=== PATIENT | female | born 1960 | race Caucasian/White ===

== ENCOUNTER 2024-12-29 14:17 | Outpatient (CLI) | payer MEDICARE, SELFPAY | END 2024-12-29 14:18 | disposition home or self-care (01) | LOC: AMB 12-30 11:20 | PROVIDERS: PCP Family Medicine; Visit Provider Family Medicine | DX: E11.65 Type 2 diabetes mellitus with hyperglycemia (principal) | CPT/HCPCS: A0425; A0427 ==

== ENCOUNTER 2024-12-29 14:57 | Inpatient (IN) | payer MEDICARE, SELFPAY ==
--- OUTSIDE RECORDS SUMMARY | 2024-12-01 03:01 | XMS_ITS | Continuity of Care Document ---
Author Organization [facility] Address [address] [address] [place] [address] Phone Care Team Providers Care Plant Engineer Name Role Phone Laurence Rashid CRNA Unavailable Unavailable Allergies, Adverse Reactions, Alerts Substance Reaction Status Criticality metformin Diarrhea Active No Information amlodipine Unknown Active No Information prednisone Memory impairment Active No Informa tion indomethacin Rash Active No Information liraglutide Rash Active No Information EXENATIDE MICROSPHERES Rash Active No In formation topiramate Dizziness Active No Information lamotrigine Dizziness Active No Information morphine Nausea Active No Information escitalopram Feeling agitated Active No Informat ion Medications Medication Instructions Dosage Effective Dates (start - stop) Status Comments Advair Diskus 250 mcg-50 mcg/dose powder for inhalation inhale 1 puff by inhalation route 2 times every day approximately 12 hours apart at the same times each day 1.00 puff - Active gabapentin 100 mg capsule take 1 capsule by oral route 3 times every day 100 MG - Active Novolog FlexPen U-100 Insulin aspart 100 unit/mL (3 mL) subcutaneous inject by subcutaneous route per prescriber's instructions. Insulin dosing requires individualization. 0.00 - Active Toujeo SoloStar U-300 Insulin 300 unit/mL (1.5 mL) subcutaneous pen inject by subcutaneous route per prescriber's instructions. Insulin dosing requires individualization. 0.00 - Active rosuvastatin 10 mg tablet take 1 tablet by oral route every day 10 MG - Active Rybelsus 3 mg tablet take 1 tablet by oral route every day in the morning 30 min before any food, drink or medication with no more than 4 oz plain water 3 MG - Active lorazepam 0.5 mg tablet take 2 Tablet by oral route every day at bedtime - Active melatonin 3 mg capsule take 2 tablet by oral route at bedtime - Active magnesium 250 mg tablet take 1 tablet by oral route every day 1 tablet - Active omeprazole 20 mg capsule,delayed release take 1 capsule by oral route every day before a meal 20 MG - Active prochlorperazine maleate 10 mg tablet take 1 tablet by oral route every 6 hours PRN 10 MG - Active Proair Digihaler 90 mcg/actuation aerosol powder breath act, sensor inhale 2 puff by inhalation route every 4 - 6 hours as needed - Active metoprolol tartrate 50 mg tablet take 1 tablet by oral route 2 times every day with meals 50 MG - Active losartan 100 mg tablet take 1 tablet by oral route every day 100 MG - Active lithium carbonate 300 mg capsule take 1 capsule by oral route every day 300 MG - Active lithium carbonate 150 mg capsule take 1.5 Capsule by oral route 2 times every day 225 MG - Active liothyronine 5 mcg tablet take 1 tablet by oral route 2 times every day 5 MCG - Active Flonase Allergy Relief 50 mcg/actuation nasal spray,suspension spray 2 vial by nasal route every day 2 vial - Active codeine 10 mg-guaifenesin 100 mg/5 mL oral liquid take 5 - 60 milliliter by oral route every hour as needed 5-60 milliliter - Active cetirizine 10 mg tablet take 1 tablet by oral route every day 10 MG - Active benzonatate 100 mg capsule take 1 capsule by oral route 3 times every day PRN 100 MG - Active acyclovir 800 mg tablet take 1 tablet by oral route 2 times every day PRN, cold sore 800 MG - Active levothyroxine 175 mcg capsule take 1 capsule by oral route every day 175 MCG - Active levothyroxine 150 mcg capsule take 1 capsule by oral route every day 150 MCG - No Longer Active insulin glargine (U-300) conc. 300 unit/mL (1.5 mL) subcutaneous pen inject by subcutaneous route as per insulin protocol 0.00 - No Longer Active insulin aspart (U-100) 100 unit/mL (3 mL) subcutaneous pen inject by subcutaneous route per prescriber's instructions. Insulin dosing requires individualization. 0.00 - No Longer Active budesonide-formoterol HFA 160 mcg-4.5 mcg/actuation aerosol inhaler inhale 2 puff by inhalation route 2 times every day in the morning and evening 2.00 puff - No Longer Active Procedures Procedure Date Colonoscopy Flex; W/remov Les- 25 Colonoscopy Flex; W/bx 1/mx Level Iv-surg Path Gross/micro 25 Offic/outpt E&m Estab Mod-hi 2 24 Routine Serum Collection Complex e/m visit add on Offic/outpt E&m Estab Mod-hi 2 24 Ugi Endo; W/bx 1/mx Level Iv-surg Path Gross/micro 24 Immunocytochemistry, Each Antibody Advance Directives Directive Yes / No Effective Date File Name No Information Encounters Encounter Description Practice Location Reason(s) For Visit Diagnoses Date Provider Providers Copied on Encounter [facility] [address] [address], [place], [place], [id number], [place] tel:[phone] [facility] No Information Gay Dang. [address] [facility], [place], [place], [id number] , [place]. tel:[phone] Referring Provider: Stevo Melton MD, [address] [facility] [address], [place], [address]. tel:[phone] [facility], [address] [address], [place], [id number], [place] tel:[phone] [facility] Colorectal polypsHypertroph ied anal papillaExternal hemorrhoidsBenig n neoplasm of ascending colonBenign neoplasm of descending colonBenign neoplasm of rectum November- 5 Geronimo Whiteside. [address] [facility], [place], [id number] , [place]. [phone] Referring Provider: Referral Self, USE FOR SELF REFERRALS. [facility], [address] [address], [place], [id number], [place] tel:[phone] [facility] No Information Mar-0 5 Go Clarke. [address] [address] [facility], [place], [id number] , [place]. [phone] Offic/outpt E&m Estab Mod-hi 2 [facility], [address] [address], [place], [id number], [place] tel:[phone] [facility] Symptoms or Concerns (chief complaint) Liver cirrhosis secondary to NICHOLE (nonalcoholic steatohepatitis) Unspecified cirrhosis of liverRUQ abdominal pain Nov-2 4 Mike Schumacher . [address] [address] [facility], [place], [id number] , [place]. [phone] Referring Provider: Angelique Kong, [address] [place] [address], [place], [address]. tel:[phone] [facility], [address] [address], [place], [id number], [place] tel:[phone] [facility] RUQ abdominal pain Sep-3 4 Geronimo Whiteside. [address] [facility], [place], [id number] , [place]. [phone] Offic/outpt E&m Estab Mod-hi 2 [facility], [address] [address], [place], [id number], [place] tel:[phone] [facility] GI Symptoms or Concerns (chief complaint) Dietary counseling and surveillanceZak christopherly Mar- 4 Geronimo Whiteside. [address] [facility], [place], [place], [id number] , [place]. tel: [phone] Referring Provider: Referral Self, USE FOR SELF REFERRALS. [facility], [address] [address], [place], [id number], [place] tel:[phone] [facility] No Information 4 Go Clarke. [address] [facility], [facility] [address], [place], [id number] , [place]. tel: [phone] [facility], [address] [address], [place], [id number], [place] tel:[phone] [facility] Upper abdominal painDisease of stomach and duodenum, unspecifiedDisea se of stomach and duodenum, unspecified 4 Ning Belcher . [address] [facility], [place] [facility] [place], [id number] , [place]. tel: [phone] Referring Provider: Angelique Wilson MD K, [address] [facility], [place], [address]. [phone] [facility], [address] [address], [place], [id number], [place] tel:[phone] [facility] No Information 4 Go Clarke. [address] [facility], [facility] [place], [id number] , [place]. tel: [phone] Family History Family Member Type Diagnosis Age At Onset Sister Problem Cancer, breast Sister Problem (finding) Daughter Problem Celiac disease Brother Problem Alcoholism Father Problem Diabetes mellitus Immunizations Vaccine Date Status Comments Influenza, adjuvanted, inactivated, trivalent, injectable, preservative free administered Note: NDIC bi-directional interface ; Source: Other Registry Respiratory syncytial virus (RSV), vaccine, bivalent, protein subunit RSV prefusion F, diluent reconstituted, 0.5 mL, preservative free administered Note: [facility] bi-direct ional interface ; Source: Other Registry Afluria Qd administered Note: M IIC bi-directional interface ; Source: Other Registry tetanus toxoid, reduced diphtheria toxoid, and acellular pertussis vaccine, adsorbed administered Note: [facility] b i-directional interface ; Source: Other Registry Pneumococcal conjugate vacci ne 20-valent (PCV20), polysaccharide [id number] conjugate, adjuvant, preservative free administered Note: [facility] bi-direct ional interface ; Source: Other Registry Afluria Qd administered Note: M [facility]IC bi-directional interface ; Source: Other Registry SARS-COV-2 (COVID-19) vaccin e, mRNA, spike protein, LNP, preservative free, 30 mcg/0.3mL dose administered Note: [facility] bi-direct ional interface ; Source: Other Registry Afluria Qd administered Note: M [facility]IC bi-directional interface ; Source: Other Registry SARS-COV-2 (COVID-19) vaccin e, mRNA, spike protein, LNP, preservative free, 30 mcg/0.3mL dose administered Note: [facility] bi-direct ional interface ; Source: Other Registry SARS-COV-2 (COVID-19) vaccin e, mRNA, spike protein, LNP, preservative free, 30 mcg/0.3mL dose administered Note: [facility]IC bi-direct ional interface ; Source: Other Registry Afluria Qd administered Note: M IIC bi-directional interface ; Source: Other Registry Afluria Qd administered Note: M IIC bi-directional interface ; Source: Other Registry Afluria Qd administered Note: M IIC bi-directional interface ; Source: Other Registry Influenza administered Note: MIIC bi-d irectional interface ; Source: Other Registry Afluria Qd administered Note: M IIC bi-directional interface ; Source: Other Registry Afluria Qd administered Note: M IIC bi-directional interface ; Source: Other Registry Afluria Qd administered Note: M IIC bi-directional interface ; Source: Other Registry Influenza, split virus, trivalent, injectable, preservative free administered Note: MIIC bi-direct ional interface ; Source: Other Registry tetanus toxoid, reduced diphtheria toxoid, and acellular pertussis vaccine, adsorbed administered Note: MIIC b i-directional interface ; Source: Other Registry zoster vaccine, live administered Note: M IIC bi-directional interface ; Source: Other Registry zoster vaccine, live administered Note: M IIC bi-directional interface ; Source: Other Registry Pneumovax 23 administered Note: [facility] bi-d irectional interface ; Source: Other Registry Influenza, split virus, trivalent, injectable, preservative free administered Note: [facility]IC bi-direct ional interface ; Source: Other Registry Engerix-B administered Note: [facility] bi-d irectional interface ; Source: Other Registry varicella virus vaccine administered Note : MIIC bi-directional interface ; Source: Other Registry Engerix-B administered Note: [facility]IC bi-d irectional interface ; Source: Other Registry Novel [id number], injectable administered Note: [facility]IC bi-direct ional interface ; Source: Other Registry tetanus and diphtheria toxoi ds, adsorbed, preservative free, for adult use (5 Lf of tetanus toxoid and 2 Lf of diphtheria toxoid) administered Note: MII C bi- directional interface ; Source: Other Registry Engerix-B administered Note: [facility] bi-d irectional interface ; Source: Other Registry Payers Payer name Insurance type Covered libertarian ID Authoriza tijass(s) [facility] [employer] [facility] CI [id number] [facility] CI 111 Social History Type Description Quantity Date Captured Comments Sex Female Smoking Status No Information Chief Complaint And Reason For Visit No Information Reason For Referral Reason For Referral No Information Plan Of Treatment Date Type Action Status Goal Lifestyle education regardin g diet completed Referral Ordered: Hepatoma Protocol Appointment date/timeframe: First Available ordered Referral Ordered: Colonoscopy Appointment date/timeframe: 11/24/2024 ordered Referral Ordered: Liver Biopsy With Ultrasound Guidance Appointment date/timeframe: 04/30/2024 ordered Referral Ordered: HIDA Scan WITH Ejection Fraction Appointment date/timeframe: 05/04/2024 ordered Referral Ordered: Doppler Hepatic And Portal Vein Appointment date/timeframe: 04/10/2024 ordered Referral Ordered: Ultrasound Abdomen Appointment date/timeframe: 04/10/2024 ordered History Of Present Illness Encounter Date Complaint History Of Prese nt Illness GI Symptoms or Concerns Beth (Ca thyVicki Hayden is a 63-year-old female seen today for follow-up of abnormal liver function testing with recent diagnosis of steatohepatitis with cirrhosis. Patient is accompanied today by her , Zoran. Patient's past medical history is notable for hypertension, hypothyroidism, hyperlipidemia, type 2 diabetes, obesity, bipolar 1, PTSD and recent stroke. In review, patient was previously seen by my colleague Dr. Melton for concern of severe right upper quadrant abdominal pain. She also noted worsening abdominal distention for 3 months prior to last visit. EGD on 03/12/2024 noted a small amount of bile in the stomach and some nodularity in the fundus but was otherwise endoscopically unremarkable. Gastric biopsies revealed reactive gastropathy and duodenal biopsies were unremarkable. She was noted to have elevated liver enzymes in a hepatocellular pattern of injury with an ALT of 60 AST of 58 in February. Her hemoglobin A1c was recently elevated at 8.3 she was noted to be negative for hepatitis B and hepatitis C. Smooth muscle antibody and antimitochondrial antibody negative. Alpha 1 antitrypsin level normal with a normal ceruloplasmin and negative celiac serologies. A CT scan with contrast in February did show hepatomegaly with fatty appearance of the liver and a DENTAL CHAIRSIDE ASSISTANT shunt. She also had an ultrasound of the right upper quadrant in August 2023 which revealed hepatic steatosis but was otherwise unremarkable.Abdominal duplex on 04/07/2024 noted hepatic steatosis but no concern for thrombosis. She ultimately underwent a liver biopsy on 04/30/2024 which revealed steatohepatitis with mild steatosis and mild inflammatory activity with bridging fibrosis and focal nodular formation consistent with stage III-IV fibrosis.Of note, patient was hospitalized at [facility] in April for a stroke. Most recently she had a CT of the abdomen and pelvis with contrast on 06/04/2024 for concern of acute abdominal pain with no new findings. Laboratory testing at this time included a BMP which was unremarkable CBC also unremarkable hepatic function panel notable for a slightly elevated alkaline phosphatase of 124 but otherwise unremarkable lipase slightly low at 12.8.Patient was noted to be immune to the hepatitis B virus on labs in September 2023. Testing was also consistent with immunity to hepatitis A with a positive hepatitis A total antibody. Testing for hepatitis B and hepatitis C infection negative.Today, patient reports she was initially told of concern regarding fatty liver many years ago but was there was nothing that we done about this. She reports no substantial history of alcohol consumption. She does note increased abdominal distention and some slight lower extremity edema. Denies substantial confusion. She notes her right upper quadrant discomfort has not been a problem lately but she does reports she has been more focused on care for her recent stroke. She denies any melena or hematochezia. Of note she did have a negative Cologuard test in December. She is scheduled for a colonoscopy but plans on doing this in 6 months given her recent stroke.She denies any family history of liver disease or cancer. But does note her sister had metastatic breast cancer.Of note, she has had difficulty managing her blood sugar. She follows a gluten sensitive diet. She does not have a diagnosis of celiac disease but does report her daughter has celiac disease. She has been using a liver cookbook to optimize liver health.She has had difficulty losing weight and has had substantial issues with balance. She was diagnosed with normal pressure hydrocephalus in April 2021 and has had substantial falls related to this. She has been advised by her primary care provider to avoid walking on treadmill or alone given her history of falls. GI Symptoms or Concerns 63-year- old female patient who presents for evaluation of abdominal pain. No prior evaluation in the GI clinic at [facility]. She reports that she started having episodes of right upper quadrant abdominal pain over the past 3 months which she has never experienced in the past. Reports that symptoms happen 2-3 times a week. Last time was 2 days ago. It started suddenly with no trigger. No food prior to that. Pain is severe in the right upper quadrant with no radiation and no association with any nausea or vomiting. Bowel movements are normal with no significant changes. Pain is severe as 8 out of 10. It resolved spontaneously after about 15 minutes. She also reports that she started having mouth sores since July of this year this has been evaluated by oral surgery, primary care, and she even had biopsy which was inconclusive. She noted that she started having worsening abdominal swelling over the past 3 months. She underwent upper endoscopy on 03/12/2024 for evaluation of abdominal pain. Upper endoscopy reported normal esophagus, small amount of bile in the stomach and some nodularity in the fundus, normal duodenum. Biopsies of the stomach showed reactive gastropathy. Duodenal biopsies were normal.Recent blood work on 02/18/2024:Normal CBC, elevated liver enzymes with AST at 58, ALT 60, alkaline phosphatase 141, normal bilirubin. It was last noted that she had normal liver enzymes back in February 2021. However her liver enzymes have been worsening over the past 6 months.Hemoglobin A1c elevated at 8.3.Hepatitis B and C serologies are negative.Anti-smooth muscle antibody and antimitochondrial antibody negative.Alpha-1 antitrypsin normal at 136. Ceruloplasmin normal at 37. Celiac serology normal TTG IgA with normal total IgA.CT abdomen pelvis with contrast 03/06/2024:Hepatomegaly with fatty appearance of the liver.DENTAL CHAIRSIDE ASSISTANT shunt present. CT abdomen pelvis without contrast 11/14/2022:DENTAL CHAIRSIDE ASSISTANT shunt in place.Evidence of total hysterectomy.Increased stool burden in the right colon.No reported hepatomegaly however on my review of the imaging, liver appeared the same in size.Right upper quadrant abdominal ultrasound 09/03/2023:Hepatic steatosis otherwise no remarkable findings in the abdomen. Normal CBD measured 4 mm.Past medical history:Diabetes mellitus on insulin.Hypothyroidism. Functional Status Date Functional Assessmen t No Information Instructions Date Instruction Additional Infor mation High Fiber Diet Related to Exter nal hemorrhoids Colon Polyps Related to Color ectal polyps Hemorrhoids (External) Related t o External hemorrhoids Colon Cancer Prevention Related to Colorectal polyps Insulin resistance diet Related to Liver cirrhosis secondary to NICHOLE (nonalcoholic steatohepatitis) Referral for Doppler ultrasound to assess for portal hypertension and for hepatic or portal venous thrombosis.We will discuss the case with our hepatology team after we get the ultrasound to see if there is any further testing is needed for evaluation of her hepatomegaly.We discussed with the patient the importance of controlling her metabolic factors to help with her fatty liver. We discussed the benefit of weight loss and controlling the metabolic factor that can lead to complete resolution of her fatty liver and the risk of persistent factors that can contribute to further damage to the liver and can lead to liver cirrhosis. She was on Ozempic in the past which she did not tolerate well however insurance stopped coverage. We discussed with her to follow-up with endocrine as her PCP suggested and see if they can offer anything else for blood sugar and weight loss management. Related to Dietary counseling and surveillance Lifestyle education regarding di et Related to Dietary counseling and surveillance Assessments Type Assessment Date No Information Patient Care Teams Name Effective Dates (start - stop) Status Members No Information
[2024-12-29] VITALS (16 sets, daily range): BP systolic 154–184; BP diastolic 80–122; PULSE 79–99; RESP 7–37; TEMP 36.6–36.9; O2SAT 82–99
--- OUTSIDE RECORDS SUMMARY | 2024-12-29 14:59 | XMS_ITS | Clinical Summary ---
Author Organization [facility] Address [address] , [address] [place] [address] Phone Care Team Providers Care Temporary Administrative Assistant Name Role Phone [facility] Unavailable Unava ilable Conditions or Problems Problem Name Problem Code Onset Date Status Entry Date Provider Comment Standard Description Annotate Ulnar neuropathy, left 103573137 (SNOMED CT) 08/13 Active 08/13 Rell Sorto MD Ulnar neuropathy Left median neuropathy 974862550 (SNOMED CT) 08/13 Active 08/13 Rell Sorto MD Median neuropathy Gait imbalance 236515507 (SNOMED CT) 03/07 Active 03/07 Patricia Mullins MD Abnormal gait due to impairment of balance Normal pressure hydrocephalu s 74755123 (SNOMED CT) 03/07 Active 03/07 Patricia Mullins MD Normal pressure hydrocephalus Vitamin D deficiency 06032695 (SNOMED CT) 01/05 Active 03/07 Patricia Mullins MD Vitamin D deficiency Type 2 diabetes mellitus without complication , without long-term E11.9 (ICD-10-CM ) 03/20 Active 03/07 Patricia Mullins MD Type 2 diabetes mellitus without complications Panic disorder 791021641 (SNOMED CT) 12/03 Active 03/07 Patricia Mullins MD Panic disorder PTSD (post-trauma tic stress disorder) F43.10 (ICD-10-CM ) 12/05 Active 03/07 Patricia Mullins MD Post-traumatic stress disorder, unspecified PFO (patent foramen ovale) Q21.1 (ICD-10-CM ) 11/02 Active 03/07 Patricia Mullins MD Atrial septal defect Hypothyroid 89358877 (SNOMED CT) 12/25 Active 03/07 Patricia Mullins MD Hypothyroidism Hyperlipidem ia 52311390 (SNOMED CT) 01/05 Active 03/07 Patricia Mullins MD Hyperlipidemia HTN (hypertensio n) I10 (ICD-10-CM ) 01/05 Active 03/07 Patricia Mullins MD Essential (primary) hypertension Bipolar affective disorder, depressed, severe 387805841 (SNOMED CT) 12/18 Active 03/07 Patricia Mullins MD Bipolar affective disorder, current episode depression INSOMNIA 081457310 (SNOMED CT) 07/27 Resolved 07/28 Gurmeet Resendez Jr, MD Insomnia HYPERSOMNIA (ESS 9; NL MSLT) G47.11 (ICD-10-CM ) 07/27 Active 07/28 Gurmeet Resendez Jr, MD Idiopathic hypersomnia with long sleep time HYPERSOMNIA (ESS 9) G47.11 (ICD-10-CM ) 07/27 Correction 07/28 Gurmeet Resendez Jr, MD Idiopathic hypersomnia with long sleep time SLEEP DISTURBANCE, NOS (MILD UARS; AHI 3; RDI 8; SUP REL) G47.9 (ICD-10-CM ) 07/27 Active 07/28 Gurmeet Resendez Jr, MD Sleep disorder, unspecified INSOMNIA 061205015 (SNOMED CT) 07/27 Removed 07/28 Gurmeet Resendez Jr, MD Insomnia SNORING 25217562 (SNOMED CT) 08/31 Active 08/31 Tad Berry MD Snoring NUMBNESS 73675521 (SNOMED CT) 08/31 Active 08/31 Tad Berry MD Numbness Medications Medication Instructions Start Date Stop Date Generic Name NDC Provider TRIAMCINOLONE ACETONIDE 0.1 % PSTE Apply small amount to affected area in mouth 2 times a day. triamcinolone 0.1% (KENALOG IN ORABASE) 0.1 % paste [id number] Patricia Mullins MD TRIAMCINOLONE ACETONIDE 0.1 % CREA Apply topically to affected area(s) 3 times daily. triamcinolone (ARISTOCORT; KENALOG) 0.1 % cream 14945626507 Patricia Mullins MD TETRACYCLINE HCL 250 MG CAPS Open capsule and mix with 1 fluid ounce water. Swish and spit 4 times a day for 4 days. tetracycline (SUMYCIN) 250 mg capsule [id number] Patricia Mullins MD PROPRANOLOL HCL ER 60 MG [id number] Take one capsule by mouth twice daily propranolol ER (Inderal LA) 60 mg Cs24 Sustained-Release cap 85091838633 Patricia Mullins MD PREDNISONE 20 MG TABS Take 2 Tablets (40 mg) by mouth once daily for 5 days. predniSONE (DELTASONE) 20 mg tablet [id number] Patricia Mullins MD ONDANSETRON [address] 1 tablet on the tongue every 8 hours if needed for Nausea/Vomiti ng. ondansetron (ZOFRAN ODT) 8 mg disintegrating tablet [id number] Patricia Mullins MD [id number]-[id number]-M C 3.5-33709-[address] 3 Drops into right ear 3 times daily. [id number]-dnbkpzprx-n ydrocortisone (CORTISPORIN OTIC) otic barraza 45513867781 Patricia Mullins MD MOMETASONE FUROATE 0.1 % CREA Apply topically to affected area(s) 2 times daily. mometasone 0.1% (ELOCON 0.1% CREAM) 0.1 % cream [id number] Patricia Mullins MD METHYLPREDNISOLONE 4 MG TBPK Take by mouth as instructed per packaging. methylPREDNISolone (Medrol, Spencer,) 4 mg tablet [id number] Patricia Mullins MD METFORMIN HCL ER 500 MG [id number] Take 1 tablet by mouth twice a day with meals for diabetes. metFORMIN (GLUCOPHAGE XR) 500 mg Extended-Release tablet [id number] Patricia Mullins MD MECLIZINE HCL 12.5 MG TABS Take 1 tablet by mouth 3 times daily if needed. meclizine (ANTIVERT) 12.5 mg tablet [id number] Patricia Mullins MD magic mouthwash w/nystatin,benadryl, lidocaine,prednisolo ne & maalox 80ml 2% viscous lidocaine. 80ml Mylanta or Maalox. 80ml Nystatin 100,000units/ mL. 80ml diphenhydrami ne. 80 ml prednisolone 15mg per 5ml solution. Swish & spit 15cc BID magic mouthwash w/nystatin,benadryl, lidocaine,prednisolo ne & Patricia Mullins MD LOSARTAN POTASSIUM 100 MG TABS Take 1 tablet by mouth once daily. losartan (COZAAR) 100 mg tablet [id number] Patricia Mullins MD LITHIUM CARBONATE 150 MG CAPS Take 1 tab in the AM and 2 tabs in the PM. lithium carbonate (LITHONATE) 150 mg capsule [id number] Patricia Mullins MD LIOTHYRONINE SODIUM 5 MCG TABS Take 1 tablet by mouth once daily. liothyronine (CYTOMEL) 5 mcg tablet [id number] Patricia Mullins MD lancets (OneTouch Delica Plus Lancet) 33 gauge misc Test daily as directed lancets (OneTouch Delica Plus Lancet) 33 gauge misc Patricia Mullins MD HYDROCORTISONE ACETATE 25 MG SUPP Insert 1 Suppository (25 mg) rectally 2 times daily. hydrocortisone (ANUSOL-HC SUPPOSITORY) 25 mg suppository [id number] Patricia Mullins MD HYDROXYZINE PAMOATE 25 MG CAPS TAKE 1-3 CAPSULES BY MOUTH AT BEDTIME NEEDED FOR SLEEP hydrOXYzine pamoate (VISTARIL) 25 mg capsule [id number] Patricia Mullins MD GLIPIZIDE 5 MG TABS Take 1 Tablet (5 mg) by mouth 2 times daily before meals. glipiZIDE (GLUCOTROL) 5 mg tablet [id number] Patricia Mullins MD FLUTICASONE PROPIONATE 50 MCG/ACT SUSP TAKE 2 SPRAYS IN EACH NOSTRIL ONCE A DAY fluticasone (50 mcg per actuation) nasal solution (FLONASE) 28722130072 Patricia Mullins MD FLUTICASONE PROPIONATE 50 MCG/ACT SUSP Inhale 1 [place] into both nostrils once daily. fluticasone (50 mcg per actuation) nasal solution (FLONASE) 61094851762 Patricia Mullins MD FLUCONAZOLE 150 MG TABS Take one tablet now and repeat in 72 hours if symptoms have not resolved fluconazole (DIFLUCAN) 150 mg tablet [id number] Patricia Mullins MD ESZOPICLONE 3 MG TABS Take 1 tablet by mouth at bedtime. eszopiclone (LUNESTA) 3 mg tablet [id number] Patricia Mullins MD ESTRADIOL 10 MCG TABS INSERT ONE TABLET VAGINALLY TWICE A WEEK FOR MAINTENANCE estradiol (YUVAFEM) 10 mcg tab vaginal tablet [id number] Patricia Mullins MD DOXYCYCLINE HYCLATE 100 MG TABS Take 1 Tablet (100 mg) by mouth 2 times daily for 5 days. doxycycline (VIBRAMYCIN) 100 mg tablet [id number] Patricia Mullins MD GUAIFENESIN-CODEINE 100-10 MG/5ML SOLN Take 5 mL by mouth every 6 hours if needed for Cough. Max dose 60 mL per 24 hrs. codeine-guaiFENesin (ROBITUSSIN AC) 10-100 mg/5 mL liquid [id number] Patricia Mullins MD CLOBETASOL PROPIONATE 0.05 % CREA Apply topically to affected area(s) 2 times daily. clobetasol cream 0.05% (TEMOVATE) 0.05 % cream [id number] Patricai Mullins MD VITAMIN D3 50 MCG (2000 UT) CAPS Take 1 capsule by mouth once daily. cholecalciferol (VITAMIN D-3) 2,000 unit capsule [id number] Patricia Mullins MD BUPROPION HCL ER (XL) 150 MG [id number] Take 1 tablet by mouth every morning. buPROPion (WELLBUTRIN XL) 150 mg Extended-Release tablet [id number] Patricia Mullins MD blood sugar diagnostic (OneTouch Ultra Blue Test Strip) strip Use to test blood sugar daily as directed blood sugar diagnostic (OneTouch Ultra Blue Test Strip) stri Patricia Mullins MD AZITHROMYCIN 250 MG TABS Two tablets the first day, one daily days 2-5 azithromycin (Zithromax Z-Spencer) 250 mg tablet [id number] Patricia Mullins MD ATORVASTATIN CALCIUM 10 MG TABS Take 1 tablet by mouth at bedtime. atorvastatin (LIPITOR) 10 mg tablet [id number] Patricia Mullins MD ASPIRIN 81 MG TBEC Take 1 tablet by mouth once daily with a meal. aspirin (ECOTRIN) 81 mg enteric coated tablet [id number] Patricia Mullins MD ALBUTEROL SULFATE HFA 108 (90 Base) MCG/ACT AERS Inhale 1-2 Puffs by mouth every 4 hours if needed. albuterol HFA (PRO-AIR; VENTOLIN; PROVENTIL) 90 mcg/actuatio [id number] Patricia Mullins MD SYNTHROID 88 MCG TABS Take 1 tablet by mouth once daily. Synthroid 88 mcg tablet [id number] Patricia Mullins MD SITagliptin (JANUVIA) 100 mg tablet Take 1 tablet by mouth once daily. SITagliptin (JANUVIA) 100 mg tablet Patricia Mullins MD ONE TOUCH ULTRAMINI Test 1 times per day. ONE TOUCH ULTRAMINI Patricia Mullins MD ONE TOUCH DELICA 33 gauge misc Test daily as directed ONE TOUCH DELICA 33 gauge misc Patricia Mullins MD MULTIVITAMIN ORAL Take by mouth once daily. MULTIVITAMIN ORAL Patricia Mullins MD FLUOXETINE HCL 40 MG CAPS TAKE 1 CAPSULE BY MOUTH EACH MORNING. FLUoxetine (PROZAC) 40 mg capsule [id number] Patricia Mullins MD Codeine-guaFENesin 6.3-100 mg/5 mL liqd Take 15 mL by mouth every 6 hours if needed. Codeine-guaFENesin 6.3-100 mg/5 mL liqd Patricia Mullins MD DIVALPROEX SODIUM ER 500 MG [id number] TK ONE T PO D 09/11 DIVALPROEX SODIUM [id number] Gurmeet Resendez Jr, MD PLAVIX 75 MG TABS one PO daily 08/31 CLOPIDOGREL BISULFATE 58516385247 Tad Berry MD CLONAZEPAM 0.5 MG TBDP 08/31 CLONAZEPAM 78104599997 Tad Berry MD ZIPRASIDONE HCL 20 MG CAPS TK ONE C PO BID WITH FOOD 09/11 ZIPRASIDONE HCL [id number] Tad Berry MD DIVALPROEX SODIUM ER 500 MG [id number] TK ONE T PO D 09/11 DIVALPROEX SODIUM [id number] Tad Berry MD FLUOXETINE HCL 20 MG CAPS TK ONE C PO D 09/11 FLUOXETINE HCL 93045160495 Tad Berry MD GLIPIZIDE ER 5 MG [id number] TK 2 TS PO IN THE MORNING AND 1 T IN THE EVENING GLIPIZIDE [id number] Tad Berry MD LOSARTAN POTASSIUM 100 MG TABS TK ONE T PO D 09/01 LOSARTAN POTASSIUM 87126845248 Tad Berry MD HYDROCHLOROTHIAZIDE 50 MG TABS TK ONE T PO D 12/31 HYDROCHLOROTHIAZIDE 92699430408 Tad Berry MD LEVOTHYROXINE SODIUM 100 MCG TABS TK ONE T PO D 07/23 LEVOTHYROXINE SODIUM 13343094339 Tad Berry MD ATORVASTATIN CALCIUM 20 MG TABS TK ONE T PO HS 02/17 ATORVASTATIN CALCIUM 32916708926 Tad Berry MD AMLODIPINE BESYLATE 5 MG TABS TK ONE T PO D 02/17 AMLODIPINE BESYLATE 16440412275 Tad Berry MD METOPROLOL SUCCINATE ER 25 MG [id number] TK 1 T PO HS 10/20 METOPROLOL SUCCINATE 86203707215 Tad Berry MD FLUOXETINE HCL 10 MG TABS TK 3 CS PO QAM 10/23 FLUOXETINE HCL 69445252357 Tad Berry MD METFORMIN HCL ER 500 MG [id number] TK 2 TS QAM AND 2 TS HS 02/20 METFORMIN HCL 66646231255 Tad Berry MD Medications Administered No information available. 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 Internal Other: Authorizatio n - OBS [id number] Yes GE use only - for [employer] import when terms are not otherwise specified Internal Other: Verbal Autho rization/Emergency Contact - OBS VERBAL_EMER DONE Verbal au thorization and emergency contact Internal Other: Authorizatio n AUTHBENEFIT Yes Authoriza tion: Assignment of Benefits and Payment Agreement [email or web address] Yes Authorizat ion: Authorization for [facility] to leave messages, voicemail, send text messages, send emails AUTHRELHCARE Yes Authoriz ation: Release/Retrieval of Information to/from Healthcare Facilities, Pharmacy Benefit Payers and Providers ROIAUTHOTHER Yes Authoriz ation: Release of Information - Authorize Others/Insurance - Payment and Healthcare Operations [email or web address] Yes Authoriza tion: Release of Information - Authorize [facility] - Payment and Healthcare Operations AUTHPRIVPRAC Yes Authoriz ation: Notice of privacy practices HIECONSENT Yes Consent To Release information to the Health Information Exchange (PeerMe[employer]) Plan of Care Type Date Detail Pending order Other Radiology Pending order MRI-Cervical W/O Pending order MRI-Cervical W/O Pending Order exclud ed from report: Pending order Other Radiology Procedures Code Procedure Name Date Entry Date CPT-66116 Nerve Conduction 7-8 studies CPT-99852 EMG with NCS (5+ muscles) - 1 limb 08/13 [id number] MRI-Cervical W/O [id number] Documentation of current medicatio ns CPT-60395 Multiple Sleep Laten cy Testing - 4+ naps (07637) CPT-12625 PSG, 4+ parameters w / tech - 6yrs or older (27342) Vital Signs Date Name Value Unit Description Height 62 [in_us] height E&M BMI (Body Mass Index) 29.33 kg/m2 Bod y Mass Index (Ratio) BP Diastolic 77 mm[Hg] blood pressu re, diastolic BP Systolic 135 mm[Hg] blood pressur e, systolic Heart Rate 72 /min pulse rate Weight Measured 72.64 kg weight in kilograms E&M Weight Measured 159.8 [lb_av] weight E& M Weight Measured 159.8 [lb_av] weight E& M Respiratory Rate 16 /min respirat ory rate E&M Immunizations No information available. Advance Directives No information available.
--- OUTSIDE RECORDS SUMMARY | 2024-12-29 14:59 | XMS_ITS | Clinical Summary ---
Author Organization [facility] Address [address] [place] [id number] Care Team Providers Care Physiotherapy Practice Manager Name Role Phone Angelique Wilson MD Primary Care Provide r Simi Hensley PsyD, LP Unavailable Anai Andrews PARCEL POST OFFICER Unavailable Dina Dobson RD Unavailable [phone] Otto Kay DO Unavailable [phone] Harmony Cadena PharmD Unavailable Radha Jorgensen PARCEL POST OFFICER Unavailable Irma Hein MD Unavailable Bassem Dangelo MD Unavailable [phone] Janet Santana Unavailable Brii Garcia MD Unavailable [phone] Celina Rudd PharmD Unavailable Allergies Active Allergy Reactions Criticality Noted Date Comments Amlodipine Other - Describe In Comment Field,*Unknown - Follow up needed 10/12/2022 Foot edema Exenatide Microspheres Rash 11/02/2021 Exenatide Rash 03/12/2024 Gluten *Unknown 02/19/2022 Reports she was only gluten free to support daugther Indomethacin Rash 10/07/2003 Lamotrigine Dizziness,Fever 02/23/2020 Levofloxacin Diarrhea,Stomach Upset 07/10/2024 Escitalopram Agitation High 12/10/2013 Suicidal ideation Metformin Diarrhea 02/18/2023 Morphine Nausea Only 11/02/2019 Prednisone Mental Status Change,Other - Describe In Comment Field 02/16/2022 Topiramate Dizziness 03/10/2020 Liraglutide Rash 11/30/2021 Medications cetirizine (ZYRTEC) 10 mg tablet Take 1 Tablet (10 mg) by mouth once daily. 0 02/27/20 23 Active WalkerIndication s:Lacunar stroke (HC) Walker with front wheels for home use. 1 Each 05/05/20 24 Active aspirin chewable 81 mg chewable tabletIndication s:Cerebrovascula r accident (CVA), unspecified mechanism (HC) Chew 81 mg by mouth two times daily. 06/08/20 24 Active melatonin 3 mg tabletIndication s:Insomnia, unspecified type Take 2 Tablets (6 mg) by mouth at bedtime. 180 Tablet 07/13/20 24 Active fluticasone (50 mcg per actuation) nasal solution (FLONASE)Indicat ions:Acute non-recurrent frontal sinusitis,Laryng itis Inhale 2 Sprays in both nostrils once daily. 48 g 3 07/14/20 24 Active lancets (OneTouch Delica Plus Lancet) 33 gauge miscIndications: Type 2 diabetes mellitus without complication, without long-term current use of insulin (HC),Diabetes mellitus without complication (HC) As directed. Dispense item covered by pt ins. E11.9 NIDDM type II - Test 2 times/day. Reason: High A1C 200 Each 3 07/14/20 24 Active lidocaine, viscous, 2 % liquidIndication s:Canker sores oral SWISH AND SPIT 15 ML BY MOUTH EVERY 4 HOURS IF NEEDED FOR STOMATITIS 100 mL 07/14/20 24 Active liothyronine (CYTOMEL) 5 mcg tabletIndication s:Hypothyroidism , unspecified type Take 1 Tablet (5 mcg) by mouth once daily. 90 Tablet 2 07/14/20 24 Active metoprolol tartrate (LOPRESSOR) 50 mg tabletIndication s:HTN (hypertension) Take 1 Tablet (50 mg) by mouth two times daily. 180 Tablet 3 07/14/20 24 Active Blood-Glucose Meter (OneTouch Verio Flex meter)Indication s:Type 2 diabetes mellitus without complication, without long-term current use of insulin (HC) Dispense glucose meter, test strips and lancets covered by the patient insurance. Test 2 times per day. 1 Kit 07/14/20 24 Active rosuvastatin (CRESTOR) 10 mg tabletIndication s:Lacunar stroke (HC) Take 0.5 Tablets (5 mg) by mouth at bedtime. 45 Tablet 2 07/14/20 24 Active blood sugar diagnostic (OneTouch Verio test strips) stripIndications :Type 2 diabetes mellitus without complication, without long-term current use of insulin (HC) Dispense item covered by pt ins. E11.65 IDDM type II, uncontrolled - Test 2 times/day. 200 Each 3 07/14/20 24 Active Dexcom G7 Sensor for continuous blood glucose monitor (CGM)Indications :Uncontrolled type 2 diabetes mellitus with hyperglycemia (HC) To be used to read blood sugars, follow environmental associate directions. to be changed every 10 days 9 Each 3 07/14/20 24 Active omeprazole (PRILOSEC) 20 mg Delayed-Release capsule Take 1 Capsule (20 mg) by mouth two times daily. 08/10/19 25 Active albuterol HFA (PRO-AIR; VENTOLIN; PROVENTIL) 90 mcg/actuation inhalerIndicatio ns:Bronchitis Inhale 2 Puffs by mouth 4 times daily if needed for Shortness Of Breath. 18 g 5 6:57 PM SALESFORCE CONSULTANT 09/15/19 25 Active pen needle (bd insulin pen needle uf mini) 31 gauge x 3/16 (disposable insulin pen needle)Indicatio ns:Type 2 diabetes mellitus without complication, without long-term current use of insulin (HC) USE FOR INJECTING INSULIN 4 TIMES A DAY DIRECTED 300 Each 3 09/22/19 25 Active fluticasone propion-salmeter oL (Advair Diskus) 250-50 mcg/Dose diskus inhalerIndicatio ns:Bronchitis Inhale 1 Puff by mouth two times daily. Can take additional puff if symptomatic. 120 Each 5 09/23/19 25 Active LORazepam 0.5 mg tabIndications:P anic disorder,Anxiety Take 0.5-1 Tablets (0.25-0.5 mg) by mouth once daily if needed for Anxiety (Flying). 4 Tablet 10/13/19 25 Active levothyroxine 200 mcg tabletIndication s:Hypothyroidism (acquired) Take 1 Tablet (200 mcg) by mouth before breakfast. 90 Tablet 3 10/21/19 25 Active LORazepam 0.5 mg tabIndications:P anic disorder,Insomni a, unspecified type Take 2 Tablets (1 mg) by mouth at bedtime. 60 Tablet 2 10/28/19 25 Active lithium carbonate 300 mg Controlled-Relea se tabletIndication s:Bipolar 1 disorder, manic, moderate (HC) TAKE 1 TABLET BY MOUTH AT BEDTIME 30 Tablet 2 11/04/19 25 Active lithium carbonate 150 mg capsuleIndicatio ns:Bipolar 1 disorder, manic, moderate (HC) TAKE 1 CAPSULE (150 MG) BY MOUTH AT BEDTIME. TAKE ALONG WITH 300MG TABLET 30 Capsule 2 11/04/19 25 Active benzonatate 200 mg capsuleIndicatio ns:Upper respiratory tract infection, unspecified type Take 1 Capsule (200 mg) by mouth 3 times daily if needed for Cough. 21 Capsule 11/12/19 25 Active insulin glargine (U-300) (Toujeo Max U-300 SoloStar) 300 unit/mL (3 mL) inpn penIndications:t ype 2 diabetes mellitus Inject 46 units subcutaneous before bedtime. 15 mL 3 11/24/19 25 Active insulin aspart (U-100) (NovoLOG Flexpen U-100 Insulin) 100 unit/mL (3 mL) penIndications:T ype 2 diabetes mellitus without complication, without long-term current use of insulin (HC) TAKE 19 UNITS AT BREAKFAST, 18 UNITS AT LUNCH AND 20 UNITS AT DINNER ALONG WITH MEDIUM SLIDING SCALE TAKE UP TO 100 UNITS PER DAY 30 mL 5 11/24/19 25 Active levothyroxine 175 mcg tabletIndication s:Hypothyroidism (acquired) Take 1 Tablet (175 mcg) by mouth before breakfast. Saturday, Saturday and Saturday. Take 200 mcgs daily the other days of the week 60 Tablet 3 11/26/19 25 Active losartan 100 mg tabletIndication s:Hypertension, unspecified type Take 1 Tablet (100 mg) by mouth once daily. 90 Tablet 12/03/19 25 Active valACYclovir 1 gram tabletIndication s:Cold sore Take 2 tablets now and then repeat again in 12 hours 30 Tablet 2 12/12/19 25 Active prochlorperazine 5 mg tabletIndication s:Nausea Take 1 Tablet (5 mg) by mouth every 6 hours if needed for Nausea/Vomiting. 30 Tablet 3 12/12/19 25 Active ketorolac 15 mg/mL injectionIndicat ions:Right flank pain Inject 1 mL (15 mg) intramuscular one time for 1 dose. 1 mL 12/30/19 25 025 Active prochlorperazine (COMPAZINE) 5 mg tablet Take 5 mg by mouth every 6 hours if needed for Nausea/Vomiting. 05/30/20 24 025 Discontinu ed(Reorder (E-cancel not sent)) losartan (COZAAR) 100 mg tabletIndication s:Hypertension, unspecified type Take 1 Tablet (100 mg) by mouth once daily. 90 Tablet 07/14/20 24 025 Discontinu ed(Reorder (E-cancel not sent)) valACYclovir (VALTREX) 1 gram tabletIndication s:Cold sore Take 2 tablets now and then repeat again in 12 hours 4 Tablet 2 08/07/19 25 025 Discontinu ed(Reorder (E-cancel not sent)) fluconazole 150 mg tabletIndication s:Vaginal itching Take 1 Tablet (150 mg) by mouth one time for 1 dose. If symptoms persistent after 72 hours, take the second tablet. 2 Tablet 12/25/19 25 025 Active Problems Problem Noted Date Diagnosed Date Adenomatous polyp of colon 12/10/2024 Cirrhosis of liver without a scites, unspecified hepatic cirrhosis type 09/22/2024 Diastolic congestive heart f ailure, unspecified HF chronicity 09/22/2024 Class 2 severe obesity with body mass index (BMI) of 35 to 39.9 with serious comorbidity 09/22/2024 Lacunar stroke 05/04/2024 Abdominal pain 05/02/2024 Large liver 05/02/2024 Interstitial lung disease 01/28/2024 Hyponatremia 10/25/2023 Primary hypertension 10/25/2023 Gastroesophageal reflux 10/25/2023 Acquired hypothyroidism 10/25/2023 Type 2 diabetes mellitus wit hout complication, with long-term current use of insulin 10/25/2023 Acute respiratory failure with hypoxia Multifocal pneumonia 10/25/2023 Acute bacterial bronchitis 02/26/2023 Controlled type 2 diabetes m ellitus without complication, with long-term current use of insulin 10/25/2022 Controlled substance agreeme nt signed by .Anai Andrews, GYMNASIUM TEACHER, CREDIT ASSISTANT on 04/09/2022 04/12/2022 Bipolar 1 disorder, manic, moderate 03/26/2022 Disorder of nervous system due to type 2 diabete s mellitus 10/24/2021 Intraductal papillary mucinous adenoma of pancre as 05/13/2021 Normal pressure hydrocephalus 05/05/2021 Frequent falls 05/05/2021 S/P SHINGLE TRIMMER shunt 05/05/2021 Mixed anxiety depressive disorder 04/20/2021 Other bipolar disorder 04/20/2021 Controlled substance agreement signed 05/14/2019 Overview (05/14/2019): Controlled substance agreement for Berny on file and signed 05/14/19. Designated pharmacy: [facility] Prescribing physician: Melisa Quevedo MD. Diagnosis: Insomnia Neelam Valle .................... 05/14/2019 11:57 AM Spongiotic dermatitis 07/03/2018 Atrophic vaginitis 02/07/2017 Controlled substance agreement signed 12/05/2016 Overview (12/05/2016): Controlled substance agreement for Nidia on file and signed 12/05/2016. Designated pharmacy: [facility] [phone] Prescribing physician:Melisa Quevedo MD. Diagnosis: Insomnia. Annelise Reyes .................... 12/05/2016 11:24 AM Type 2 diabetes mellitus wit hout complication, without long-term current use of insulin 03/20/2016 Acute idiopathic gout of foot 08/16/2015 Hyperlipidemia 01/05/2014 Hypertension 01/05/2014 Vitamin D deficiency 01/05/2014 FHx: breast cancer in first degree relative 12/14 Panic Disorder without agoraphobia 12/03/2013 Senile cataract, unspecified 05/28/2013 Lens replaced by other means 05/28/2013 Hypothyroid 12/25/2012 Chest pain 05/06/2012 Overview (05/06/2012): -05/05/2012 CT angio No significant coronary artery disease. Coronary calcium score of 0. No pericardial effusion. Normal ascending aorta dimension. PTSD (post-traumatic stress disorder) 12/05/2010 Resolved Problems Problem Noted Date Diagnosed Date Resolved Date Normal pressure hydrocephalus 03/26/2022 03/01/2023 Disease of spinal cord 10/24/202108/13 Bipolar affective disorder, depressed, severe 12/19/19 14 03/26/2022 PFO (patent foramen ovale) 11/02/2013 0 10/13/2022 Encounter for long-term (cur rent) use of medications 11/28/2012 03/01/2023 Diabetes mellitus 11/28/2012 03/20/2016 Bipolar I disorder, most rec ent episode (or current) mixed, mild 12/05/2010 12/18/2013 Encounters Date Type Department Care Team Description 12/29/2024 3:30 PM CDT Ancillary Procedure [facility] [address] [place] [address] Arrived 12/29/2024 1:25 PM CDT Office Visit [facility] [address] [place] [address] Angelique Wilson MD Cough (Cough has improved, using Advair/); Flank Pain (Woke up with severe right flank pain at 2 am, has not been able to sleep since. Feels sick./Woke up in a sweat. Feels nauseated.) 12/28/2024 Travel 12/24/2024 Telephone [facility] [address] [address] Bassem Dangelo MD Questions ([facility] ) 12/23/2024 1:00 PM CDT Ancillary Procedure [facility] [address] [place] [address] 12/23/2024 10:50 AM CDT Office Visit [address] [address] Martine Buenrostro MD Vaginal Discharge (For about a week patient has had discharge and vaginal itching. she states no urinary frequency or urgency and no pain with urination.) 12/23/2024 Travel 12/22/2024 Travel 12/10/2024 10:20 AM CDT Office Visit [facility] [address] [place] [address] Angelique Wilson MD Results (TSH level/Colonoscopy [facility] 12/01/24) 12/09/2024 Travel 11/25/2024 Telephone [facility] [address] [place] [address] Angelique Wilson MD Abnormal Lab Results 11/23/2024 10:30 AM CDT Office Visit [address] [address] Bassem Dangelo MD Follow Up; Diabetes 11/23/[address] [address] Bassem Dangelo MD Medication Problem 11/23/2024 Travel 11/20/2024 Travel 11/19/2024 10:30 AM CDT Office Visit [address] [address] Angelia Baldwin NP Follow Up; Medication Management 11/18/2024 Travel 11/12/[address] [address] Angelique Wilson MD Questions (FAX) 11/11/2024 11:15 AM CDT Ancillary Procedure [address] [address] 11/11/2024 10:50 AM CDT Office Visit [facility] [address] [place] [address] Martine Buenrostro MD Cough (cough for a week that is getting worse /Fever that has been around 100.0F/Chills/Synus drainage) 11/11/2024 Travel 11/04/2024 Telephone [facility] [address] [place] [address] Angelique Wilson MD Lab (Needing new labs to be taken) 11/03/2024 Telephone [facility] [address] [address] Bassem Dangelo MD Questions (colonoscopy prep) 11/02/2024 Refill [facility] [address] [place] [address] Angelia Baldwin NP Refill Request ([place] [facility] [facility] 10/26/2024 Travel 10/16/2024 Refill [facility] [address] [place] [address] Angelique Wilson MD Refill Request (Levothyroxine) 10/15/2024 Telephone [facility] [address] [address] Bassem Dangelo MD Questions (paperwork) 10/09/2024 9:00 AM CDT Orders [place] [facility] [address] [place] [address] Lab, [facility] 10/09/2024 Travel 10/09/2024 Telephone [facility] [address] [address] Bassem Dangelo MD Other 10/02/2024 Telephone [facility] [address] [place] [address] Angelique Wilson MD Error-please disregard 10/02/2024 Telephone [facility] [address] [address] Bassem Dangelo MD Form 10/02/2024 Orders Only [facility] [address] [address] Bassem Dangelo MD <No scans attached> 09/30/2024 Telephone [facility] [address] [place] [address] Bassem Dangelo MD FYI (Update) from Last 3 Months Immunizations Immunization Administration Dates Next Due COVID-19 vaccine (Inadco-Bio NTech 30mcg/0.3mL) PF, MDV 08/03/2021,08/24/2020,08/03/2020 Hepatitis B (Adult) 09/22/2009,05/19/2009,2008 Influenza A (H1N1), Inactiva susi (Age >=3 Years) 05/11/2009 Influenza Virus, Unspecified 03/26/2018,03/19/20 12 Influenza, IIV3 (Age 6-35 mos) 03/19/2012,2009 Influenza, IIV3 (Age >=3 years) 03/19/2012 Influenza, IIV4 06/13/2023, 2,03/21/2021,04/01,03/18/2019,03/26/2018,03/15/2016 ,03/30/2015 Influenza, IIV4 (=>6mos) MDV 03/21/2017 Influenza, Inactivated IIV3 (Age 65+ Years) Preserv Free 07/22/2024 MMR, Unspecified 05/19/2009 Pneumococcal Conj 20-valent (Prevnar 20) 09/25/2022 Pneumococcal Poly,23-Valent (Pneumovax) 09/19/2010 RSV, Bivalent Vaccine Recons tituted (Abrysvo 120MCG/0.5mL) 07/22/2024 Td, Preservative Free (age >= 7 Years) 9 Tdap 01/03/2023,02/18/2012 Varicella Vaccine 05/19/2009 Zoster (Zostavax-ZVL, live) 10/22/2011, 2 Family History Medical History Relation Name Comments Diabetes Father Hyperlipidemia Father Hypertension Father Stroke Maternal Grandfather Hemorrh agic Heart Disease Maternal Grandmother Age 70 s Anxiety disorder Mother Depression Mother Hypertension Mother Cancer-breast Sister Cancer-ovarian No Family History Relation Name Status Comments Father Maternal Grandfather Maternal Grandmother Mother Sister Social History Tobacco Use Types Packs/Day Years Used Date Smoking Tobacco: Never Passive Smoke Exposure: Past Smokeless Tobacco: Never Tobacco Cessation:Counseling Given: Yes Comments:2nd hand smoke exposure for 15 yrs (parents) Alcohol Use Standard Drinks/Week Comments Never 0 (1 standard drink = 0.6 oz pur e alcohol) PHQ-2 Answer Date Recorded PHQ-2 TOTAL SCORE 0 11/18/2024 Social Connections Answer Date Recorded Do you often feel lonely or isolated from those around you? 0 08/17/2024 Alcohol Use Answer Date Recorded How often do you have a drink containing alcohol ? 0 02/19/2022 How many drinks containing a lcohol do you have on a typical day when you are drinking? 0 02/19/2022 How often do you have five or more drinks on one occasion? 0 02/19/2022 Financial Resource Strain Answer Date R ecorded Difficulty of Paying Living Expenses 3 08/17/2024 Difficulty of Paying Living Expenses Not on file 08/17/2024 Food Insecurity Answer Date Recorded Do you worry your food will run out before you are able to buy more? 1 08/17/2024 Transportation Needs Answer Date Record ed Does lack of transportation keep you from medica l appointments? 1 08/17/2024 Does lack of transportation keep you from work, meetings or getting things that you need? 1 08/17/2024 Housing Stability Answer Date Recorded What is your housing situation today? 1 08/17/2024 Interpersonal Safety Answer Date Record ed Are you being hit, kicked, p ushed or yelled at (see row info)? Unable to assess, family/SO in room. 09/14/2024 Interpersonal Safety Abuse 12 - 18 Not on file 09/14/2024 Interpersonal Safety Ambulat ory Vulnerability Not on file 09/14/2024 Utilities Answer Date Recorded Do you have trouble paying f or utilities (for example, heat, electricity, water, phone)? 1 08/17/2024 Comments No Sex and Gender Information Value Date Recorded Sex Assigned at Female 11/25/2020 7:09 AM CDT Legal Sex Female 7:15 AM SALESFORCE CONSULTANT Gender Identity Female 11/25/2020 7:09 AM CDT Sexual Orientation Straight 11/25/2020 7: 09 AM CDT Obstetrics History Para Term AB IAB SAB Ectopic Multiple Livin g Live Births 4 4 4 3 Date Outcome GA Total Labor Labor/2nd/3rd Weight Sex Type Anes PTL Valeria A1 A5 Name Clin Term Term Term Term Last Filed Vital Signs Vital Sign Reading Time Taken Comments Blood Pressure 157/79 12/29/2024 12:52 PM CDT Pulse 77 12/29/2024 12:52 PM CDT Temperature 36.8 C (98.3 F) 12/29/2024 12:05 PM CDT Respiratory Rate 16 09/14/2024 4:42 PM SALESFORCE CONSULTANT Oxygen Saturation 98% 12/29/2024 12:52 PM CDT Inhaled Oxygen Concentration - - Weight 73.9 kg (163 lb) 12/29/2024 12:05 PM CDT Height 157.5 cm (5' 2) 09/14/2024 4:42 PM SALESFORCE CONSULTANT Body Mass Index 29.81 09/14/2024 4:42 PM SALESFORCE CONSULTANT Plan of Treatment Upcoming Encounters Date Type Department Care Team (Late st Contact Info) Description 12/29/2024 3:30 PM CDT Ancillary Procedure [address] [address] Arrived 01/07/2025 10:00 AM CDT Orders Only [address] [address] [place], [place] 01/21/2025 9:55 AM CDT Office Visit [address] [address] Angelique Wilson MD [address] [place] [address] 01/25/2025 11:45 AM CDT Office Visit [facility] [address] [address] [place] [address] [place] [address] 02/22/2025 10:30 AM CDT Telemedicine [facility] [address] [place] [address] Angelia Baldwin NP [address] [place] [address] 03/04/2025 2:45 PM CDT Office Visit [facility] [address] [place] [address] Otto Kay, DO [address] [place] [address] 03/08/2025 3:00 PM CDT Office Visit [facility] [address] [place] [address] Irma Hein MD [address] [place], [place] [id number] Health Maintenance Due Date Last Done Comments Zoster (shingles) series for age 50+ (2 of 3) 12/17/2011 10/22/2011, 09/21/2011 DEXA/DXA scan for age 65+ 12/12/2023 Medicare Wellness for age 65+ 12/12/2023 COVID-19 vaccine series ( season) 2024 08/03/2021, 08/24/2020, 08/03/2020 BMI (ht and wt on same day) for age 18+ 06/08/2025 06/08/2024, 05/25/2024, 04/27/2024, Additional history exists Depression screening for age 12+ 11/19/2025 11/19/2024, 11/18/2024, 09/17/2024, Additional history exists Mammogram for age 45-75 12/23/2025 12/24/19, 12/13/2023, 10/25/2022, Additional history exists Fecal testing sDNA-FIT ([place] guard) for age 45-75 01/02/2027 01/03/2024, 10/04/2020, 10/04/2020 Lipids for age 45-75 08/14/2029 08/14/2024, 05/05/2024, 10/02/2022, Additional history exists Tetanus booster 01/03/2033 01/03/2023, 08/12/2011, 06/29/2011 (Completed outside of [facility]), Additional history exists Hepatitis B series for 19+ Completed 09/22, 05/19/2009, 03/14/2009 Pneumococcal series for age 50+ Completed , 09/19/2010 Tdap Completed 01/03/2023, 02/18/2012 Hepatitis C screening for ag e 18-79 Completed 09/24/2023, 01/05/2014 Influenza Vaccine Completed 07/22/2024, , 05/24/2022, Additional history exists RSV vaccine for adults or Completed 07/22/2024 Goals Goal Patient Goal Type Associated Problems Recent Progress Patient-Stated? 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) CT ABDOMEN PELVIS STONE PROTOCOL WO MIMI 12/29/2024 1:35 PM CDT Flank pain URINALYSIS MACROSCOPIC - [facility] ONLY POC DIP ([facility]) Routine 12/29/2024 12:47 PM CDT Flank pain XR MAMMO SHALONDA BILAT SCREEN Routine 12/23/2024 1:18 PM CDT Visit for screening mammogram TRICHOMONAS, MENDEL, AND BACTERIAL VAGINOSIS BY ROSARIO Routine 12/23/2024 11:48 AM CDT Vaginal itching SCAN-COLONOSCOPY 12/01/2024 8:00 AM CDT T4,FREE Routine 11/23/2024 11:39 AM CDT TSH WITH REFLEX Routine 11/23/2024 11:39 AM CDT Hypothyroidism (acquired) HEMOGLOBIN A1C Routine 11/23/2024 11:39 AM CDT Type 2 diabetes mellitus without complication, without long-term current use of insulin (HC) XR CHEST 2 VIEWS PA AND LATERAL Routine 11/11/2024 11:35 AM CDT Acute cough T4,FREE Routine 10/09/2024 9:26 AM CDT TSH WITH REFLEX Routine 10/09/2024 9:26 AM CDT Hypothyroidism (acquired) LITHIUM Routine 10/09/2024 9:26 AM CDT Encounter for long-term (current) use of medications C-PEPTIDE Routine 10/09/2024 9:26 AM CDT 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), managed as type 2 (HC) IA 2 AUTOANTIBODIES Routine 10/09/2024 9 :26 AM CDT 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), managed as type 2 (HC) JODI 65 AUTOANTIBODY Routine 10/09/2024 9 :26 AM CDT 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), managed as type 2 (HC) BASIC METABOLIC PANEL Routine 10/09/2024 9:26 AM CDT 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 Fasting Reference Interval is based on [place] [employer] recommendation Point of care glucose results may vary from other glucose methodologies. Any results exhibiting inconsistency with the patient's clinical status should be repeated using a different testing method. Blood BLOOD SPECIMEN / Unknown 12/29/2024 2:19 PM CDT 12/29/2024 2:19 PM CDT us Angelique Wilson MD LABORATORY Final Result [facility] [address] [place] [address], [facility] [address] [place] [address] * CT ABDOMEN PELVIS STONE PROTOCOL WO (12/29/2024 1:35 PM CDT) Anatomical Region Laterality Modality Abdomen, Pelvis, AORTA, LIVER, SPLEEN Computed Tomography 12/29/2024 1:54 PM CDT Narrative 12/29/2024 1:54 PM CDT For Patients: As a result of the Century Cures Act, medical imaging exams and procedure reports are released immediately into your electronic medical record. You may view this report before your referring provider. If you have questions, please contact your health care provider. Indication: Flank pain Technique: Routine noncontrast CT abdomen and pelvis Please note that all CT scans at this facility use dose modulation, iterative reconstruction, and/or weight-based dosing when appropriate to reduce radiation dose to as low as reasonably achievable. Comparison: 06/04/2024 Findings: Lung bases are clear. No pleural effusion. Hepatomegaly and hepatic steatosis. Liver measures 19.1 cm. Spleen is normal. Normal adrenal glands. Normal left kidney and ureters. Punctate 2 millimeter calcification within the lower pole of the right kidney. No perinephric stranding. Pancreatic parenchyma is similar. Normal gallbladder. No abdominal aortic aneurysm. No adenopathy. Bladder normal. Postop changes of hysterectomy. No pelvic mass. Normal appendix. No bowel obstruction. Peritoneal shunt catheter tubing. No fluid collection. No fracture. Impression: Hepatomegaly and hepatic steatosis. Punctate 2 millimeter nonobstructing stone right kidney. Normal appendix. Please note that all CT scans at this facility use dose modulation, iterative reconstruction, and/or weight-based dosing when appropriate to reduce radiation dose to as low as reasonably achievable. Dictated by Tarik Funez MD @ 12/29/2024 1:54:46 PM (Electronically Signed) Procedure Note Tarik Funez MD - 12/29/2024 For Patients: As a result of the Century Cures Act, medical imagingexams and procedure reports are released immediately into your electronicmedical record. You may view this report before your referring provider.If you have questions, please contact your health care provider. Indication: Flank pain Technique: Routine noncontrast CT abdomen and pelvis Please note that all CT scans at this facility use dose modulation,iterative reconstruction, and/or weight-based dosing when appropriate toreduce radiation dose to as low as reasonably achievable. Comparison: 06/04/2024 Findings: Lung bases are clear. No pleural effusion. Hepatomegaly and hepaticsteatosis. Liver measures 19.1 cm. Spleen is normal. Normal adrenalglands. Normal left kidney and ureters. Punctate 2 millimetercalcification within the lower pole of the right kidney. No perinephricstranding. Pancreatic parenchyma is similar. Normal gallbladder. Noabdominal aortic aneurysm. No adenopathy. Bladder normal. Postop changesof hysterectomy. No pelvic mass. Normal appendix. No bowel obstruction.Peritoneal shunt catheter tubing. No fluid collection. No fracture. Impression: Hepatomegaly and hepatic steatosis. Punctate 2 millimeter nonobstructing stone right kidney. Normal appendix. Please note that all CT scans at this facility use dose modulation,iterative reconstruction, and/or weight-based dosing when appropriate toreduce radiation dose to as low as reasonably achievable. Dictated by Tarik Funez MD @ 12/29/2024 1:54:46 PM (Electronically Signed) us Angelique Wilson MD CT Final Result * (ABNORMAL) POCT Urinalysis Dipstick Only [[id number]] (12/29/2024 12:47 PM CDT) PH 6.0 5.0 - 8.0 [facility] SPECIFIC GRAVITY < OR = 1.005 1.001 - 1.035 [facility] Comment: Specific Early values resulted are outside the analytical measurement range of this device. Recommend repeat/additional testing as clinically indicated. GLUCOSE 3+(A) NEGATIVE [facility] BILIRUBIN NEGATIVE NEGATIVE [facility] KETONES 1+(A) NEGATIVE [facility] OCCULT BLOOD NEGATIVE NEGATIVE [facility] PROTEIN NEGATIVE NEGATIVE [facility] NITRITE NEGATIVE NEGATIVE [facility] LEUKOCYTE ESTERASE NEGATIVE NEGATIVE [facility] Urine URINE SPECIMEN / Unknown 12/29/2024 12:47 PM CDT 12/29/2024 12:50 PM CDT Angelique Wilson MD URINE Final Result [facility] [address] [place] [address], [facility] [address] [place] [address] * XR MAMMO SHALONDA BILAT SCREEN (12/23/2024 1:18 PM CDT) Anatomical Region Laterality Modality BREASTS, Breast Left, Breast Right Bilateral Mammography Impressions 12/23/2024 4:06 PM CDT There is no radiographic evidence for malignancy. Recommend annual mammograms. MAMMOGRAM ASSESSMENT: ACR 1 Negative PATIENTS: You will also receive a letter with your examination results in an easy to read format. If you have questions about your results, please contact your referring provider. Narrative 12/23/2024 4:06 PM CDT For Patients: As a result of the Century Cures Act, medical imaging exams and procedure reports are released immediately into your electronic medical record. You may view this report before your referring provider. If you have questions, please contact your health care provider. XR MAMMO SHALONDA BILAT SCREEN [[id number]] CLINICAL HISTORY: This is an asymptomatic 64 y.o. patient. INDICATION FOR EXAM: Mammogram Screening. TECHNIQUE: CC and MLO views were obtained. This study was evaluated with the assistance of Computer-Aided Detection. Breast Tomosynthesis was used in interpretation. COMPARISON FILM: Yes 12/13/23 [facility] 10/25/22 [facility] FINDINGS: There are scattered areas of fibroglandular density. There are no dominant masses, suspicious micro calcifications or areas of architectural distortion. us Angelique Wilson MD MAMMO Final Result * (ABNORMAL) TRICHOMONAS, MENDEL, AND BACTERIAL VAGINOSIS BY ROSARIO (12/23/2024 11:48 AM CDT) MENDEL SPECIES Positive(A) Negative 12/25/19 4:47 AM CDT [facility] MENDEL GLABRATA Negative Negative 12/24/2024 4:47 AM CDT [facility] TRICHOMONAS VVA Negative Negative 4:47 AM CDT [facility] BACTERIAL VAGINOSIS Negative Negative 12/24/2024 4:47 AM CDT [facility] Other VAGINAL SWAB / Unknown Non-Blood / Unknown 12/23/2024 11:48 AM CDT 12/23/2024 11:48 AM CDT Martine Buenrostro MD MICROBIOLOGY Final Resul t [facility] [address] [place] [address], * SCAN-COLONOSCOPY (12/01/2024 8:00 AM CDT) Narrative Procedure Note Stevo Melton MD - 12/01/2024 6:58 AM CDT [facility] [address] [address] [address], [address], [place] [address] Patient Name: Beth Hayden Gender: Female Exam Date: 12/01/2024 Visit Number: [id number] Age: 63 Years Date of : 1960 Attending MD: Stevo Melton MD Medical Record#: [id number] Procedure: Colonoscopy Indications: Diarrhea Rectal bleeding Referring MD: Referral Self Primary MD: Angelique Wilson MD Medications: Admitting Medications: 0.9% Normal Saline at TKO Intra Procedure Medications: Patient received monitored anesthesia care. Complications: No immediate complications Procedure: An examination of the heart and lungs was performed and found to be withinacceptable limits. . The patient was therefore deemed a reasonablecandidate for endoscopy and sedation. The risks and benefits of the procedure were explained to thepatient.After obtaining informed consent, the patient received monitoredanesthesia care and I passed the scope without difficulty via the rectum to the ileum. The appendiceal orificeand ic valve were identified. The scope was retroflexed during theexamination The quality of the prep was good (Miralax/Gatorade/2 tabletsBisacodyl/Magnesium Citrate). This was a complete examination throughout the entire colon. Findings: Normal finding. Location - ileum (3 cm). Polyp location: ascending colon. Quantity: 1. Size: 4 mm. Polypshape: sessile. Maneuver: polypectomy was performed with a cold snare. Removal: complete. Retrieval: complete. Bleeding: none. Polyp location: descending colon. Quantity: 1. Size: 3 mm. Polypshape: sessile. Maneuver: polypectomy was performed with a cold snare. Removal: complete. Retrieval: complete. Bleeding: none. Polyp location: rectum. Quantity: 1. Size: 4 mm. Polyp shape:sessile. Maneuver: polypectomy was performed with a cold snare. Removal: complete. Retrieval: complete. Bleeding: none. Anal canal: hypertrophied papilla Remainder of the exam is normal. Random biopsies were taken throughout the colon to rule out microscopiccolitis. Comments: External hemorrhoids noted. Impression: Colorectal polyps Hypertrophied anal papilla External hemorrhoids MD impression comments: 3 small polyps. No finding to explain colorectalbleeding other than external hemorrhoids. Preliminary Plan: The patient and their physician will receive a copy of the pathologyreport as well as pathology-based recommendations for future screening orsurveillance. Recommendation Comments: I would recommend high-fiber diet. Recommendstarting a fiber supplement such as Metamucil powder form, 1 tablespoonwith large glass of water. If diarrhea persists, please call office toconsider stool testing for infection and follow-up in the GI clinic. Ifbiopsies show evidence of inflammation, we will provide you with therapyfor the inflammation. Pathology Results: A: RECTUM, POLYP: 1. Tubular adenoma 2. Negative for high grade dysplasia 3. Per the colonoscopy report: a. Polyp size: 4 mm b. Resection: Complete c. Retrieval: Complete B: COLON, ASCENDING, POLYP: 1. Tubular adenoma 2. Negative for high grade dysplasia 3. Per the colonoscopy report: a. Polyp size: 4 mm b. Resection: Complete c. Retrieval: Complete C: COLON, DESCENDING, POLYP: 1. Tubular adenoma 2. Negative for high grade dysplasia 3. Per the colonoscopy report: a. Polyp size: 3 mm b. Resection: Complete c. Retrieval: Complete D: COLON, RANDOM, BIOPSY: 1. Normal colonic mucosa 2. Negative for microscopic, active, and chronic colitis MICROSCOPIC A: Performed B: Performed C: Performed D: Performed SPECIAL STAINING/DEEPER B: Deeper C: Deeper Electronically signed by: Selena Marinelli MD Interpreted at [facility], [address] [place] [phone] Orders Instruction(s)/Education: Instruction/Education Timeframe Assessment Colon Cancer Prevention K63.5 Colon Polyps K63.5 Hemorrhoids (External) K64.4 High Fiber Diet K64.4 Final Plan: Repeat colonoscopy in 3 years. We will attempt to contact you at appropriate intervals via U.S. mail. Wemay not be able to find you or contact you at that time, therefore youshould know that the responsibility for following our recommendation restswith you. If you don't hear from us at the time your procedure is due,please contact our office to schedule an appointment. If your contactinformation should change, please contact our office so that we can updateyour record. Additional Comments: No findings to explain diarrhea. As we discussed, start fiber supplementsuch as Metamucil powder form, 1 tablespoon with large glass of water. Ifsymptoms persist, please call our office in order to request stool testingfor infection and to schedule a follow-up visit. _Electronically signed by: Stevo Melton MD 12/01/2024 cc: Angelique Wilson MD Stevo Melton MD OTHER Final Resul t * (ABNORMAL) HEMOGLOBIN A1C (11/23/2024 11:39 AM CDT) HEMOGLOBIN A1C 10.0(H) <5.7 % [facility] Comment: For someone without known diabetes, a hemoglobin A1c value of 6.5% or greater indicates that they may have diabetes and this should be confirmed with a follow-up test. For someone with known diabetes, a value <7% indicates that their diabetes is well controlled and a value greater than or equal to 7% indicates suboptimal control. A1c targets should be individualized based on duration of diabetes, age, comorbid conditions, and other considerations. Currently, no consensus exists regarding use of hemoglobin A1c for diagnosis of diabetes for children. Blood BLOOD SPECIMEN / Unknown 11/23/2024 11:39 AM CDT 11/23/2024 11:40 AM CDT Bassem Dangelo MD CHEMISTRY Final Result [facility] [address] [place] [address], [facility] [address] [place] [address] * (ABNORMAL) TSH WITH REFLEX (11/23/2024 11:39 AM CDT) Only the most recent of2 resultswithin the time period is included. TSH W/REFLEX TO FT4 0.18(L) 0.40 - 4.50 mIU/L [facility] Blood BLOOD SPECIMEN / Unknown 11/23/2024 11:39 AM CDT 11/23/2024 11:40 AM CDT Angelique Wilson MD CHEMISTRY Final Result Performing Organization Address [facility]/ZIP Co de Phone Number Lot[facility] [address] [place] [address], [place] [phone] [facility] [address] [facility] [place] [address] * T4,FREE (11/23/2024 11:39 AM CDT) Only the most recent of2 resultswithin the time period is included. T4, FREE 1.5 0.8 - 1.8 ng/dL [facility] 11/23/2024 11:3 9 AM CDT 11/23/2024 11:40 AM CDT Bassem Dangelo MD CHEMISTRY Final Result Performing Organization Address [facility] Co de Phone Number Lot[facility] [address] [place] [address], [place] [phone] [facility] [address] [facility] [address] * XR CHEST 2 VIEWS PA AND LATERAL (11/11/2024 11:35 AM CDT) Anatomical Region Laterality Modality CHEST, THORAX, Lung, HEART Compu susi Radiography 11/11/2024 3:42 PM CDT Impressions 11/11/2024 3:42 PM CDT No acute findings and no significant changes from the prior exam. Dictated by Kane Almanza MD @ 11/11/2024 3:42:56 PM (Electronically Signed) Narrative 11/11/2024 3:42 PM CDT For Patients: As a result of the Cures Act, medical imaging exams and procedure reports are released immediately into your electronic medical record. You may view this report before your referring provider. If you have questions, please contact your health care provider. INDICATION: Acute cough. TECHNIQUE: Chest 2 views. COMPARISON: Chest x-ray 09/14/2024. FINDINGS: Cardiovascular and mediastinum: Heart size and vasculature are normal in caliber and appearance. Lungs and pleural spaces: Lungs are clear. No sign of infiltrate or mass. No sign of pleural effusion. No pneumothorax. Bones and soft tissues: Degenerative changes of aging throughout the thoracic spine. Ventriculoperitoneal shunt catheter superimposed over the thorax and upper abdomen, unchanged. Procedure Note Kane Almanza MD - 11/11/2024 For Patients: As a result of the Century Cures Act, medical imagingexams and procedure reports are released immediately into your electronicmedical record. You may view this report before your referring provider.If you have questions, please contact your health care provider. INDICATION: Acute cough. TECHNIQUE: Chest 2 views. COMPARISON: Chest x-ray 09/14/2024. FINDINGS: Cardiovascular and mediastinum: Heart size and vasculature are normal incaliber and appearance. Lungs and pleural spaces: Lungs are clear. No sign of infiltrate ormass. No sign of pleural effusion. No pneumothorax. Bones and soft tissues: Degenerative changes of aging throughout thethoracic spine. Ventriculoperitoneal shunt catheter superimposed over thethorax and upper abdomen, unchanged. IMPRESSION: No acute findings and no significant changes from the prior exam. Dictated by Kane Almanza MD @ 11/11/2024 3:42:56 PM (Electronically Signed) us Martine Buenrostro MD GENERAL IMAGING Final Resul t * JODI 65 AUTOANTIBODY (10/09/2024 9:26 AM CDT) GLUTAMIC ACID DECARBOXYLASE 65 AB <5 <5 IU/mL [facility] [facility]illi[facility], Comment: This test was performed using the GAD65 PUNEET method which is standardized against the International reference preparation 97/550. Blood BLOOD SPECIMEN / Unknown 10/09/2024 9:26 AM CDT 10/09/2024 9:27 AM CDT Narrative NORMAN AVERY/DUYEN MORAN - 10/15/2024 4:44 PM CDT FASTING:YES FASTING: YES us Bassem Dangelo MD SEND OUTS Final Result Performing Organization Address City/[facility]/ZIP Co de Phone Number [facility] [id number] [place] [phone], [facility], [address] [place] [address] * IA 2 AUTOANTIBODIES (10/09/2024 9:26 AM CDT) IA-2 ANTIBODY <5.4 <5.4 U/mL [facility], Comment: This test was performed using the IA-2 Antibody PUNEET method which is standardized against the WHO Reference Reagent 97/550. The reference range reported was established specifically for this test method. Blood BLOOD SPECIMEN / Unknown 10/09/2024 9:26 AM CDT 10/09/2024 9:27 AM CDT Narrative [facility] - 10/16/2024 9:56 PM CDT FASTING:YES FASTING: YES us Bassem Dangelo MD SEND OUTS Final Result Performing Organization Address City/[facility] Co de Phone Number [facility] [address] [place] [address], [facility], [address] [place] [phone] * C-PEPTIDE (10/09/2024 9:26 AM CDT) C-PEPTIDE 1.69 0.80 - 3.85 ng/mL [facility] Blood BLOOD SPECIMEN / Unknown 10/09/2024 9:26 AM CDT 10/09/2024 9:27 AM CDT Narrative [facility] - 10/10/2024 4:17 AM CDT FASTING:YES FASTING: YES us Bassem Dangelo MD SEND OUTS Final Result Performing Organization Address [facility]/ZIP Co de Phone Number [facility] [address] [place] [address], [facility] [address] [place] [address] * (ABNORMAL) LITHIUM (10/09/2024 9:26 AM CDT) [facility] LITHIUM 0.5(L) 0.6 - 1.2 mmol/L [facility] Blood BLOOD SPECIMEN / Unknown 10/09/2024 9:26 AM CDT 10/09/2024 9:27 AM CDT Narrative [facility] - 10/10/2024 11:50 AM CDT FASTING:YES FASTING: YES Angelia Baldwin PARCEL POST OFFICER CHEMISTRY Final Re sult Performing Organization Address [facility]/ZIP Co de Phone Number [facility] [address] [place] [address], [facility] [address] [place] [address] * (ABNORMAL) BASIC METABOLIC PANEL (10/09/2024 9:26 AM CDT) [facility] GLUCOSE 257(H) 65 - 99 mg/dL [facility] Comment: Fasting reference interval For someone without known diabetes, a glucose value >125 mg/dL indicates that they may have diabetes and this should be confirmed with a follow-up test. UREA NITROGEN (BUN) 9 7 - 25 mg/dL [facility] CREATININE 0.74 0.50 - 1.05 mg/dL [facility] EGFR 90 > OR = 60 mL/min/1. 73m2 [facility] BUN/CREATININE RATIO SEE NOTE: 6 - 22 (calc) [facility] Comment: Not Reported: BUN and Creatinine are within reference range. SODIUM 136 135 - 146 mmol/L [facility] POTASSIUM 5.1 3.5 - 5.3 mmol/L [facility] CHLORIDE 101 98 - 110 mmol/L [facility] CARBON DIOXIDE 25 20 - 32 mmol/L [facility] ELECTROLYTE BALANCE 10 7 - 17 mmol/L (calc) [facility] CALCIUM 9.6 8.6 - 10.4 mg/dL [facility] Blood BLOOD SPECIMEN / Unknown 10/09/2024 9:26 AM CDT 10/09/2024 9:27 AM CDT Narrative [facility] - 10/10/2024 3:55 AM CDT FASTING:YES FASTING: YES Bassem Dangelo MD CHEMISTRY Final Result [facility] [address] [place] [address], [facility] [address] [place] [address] * (ABNORMAL) LIPID PANEL W REFLEX MEASURED LDL (08/14/2024 1:17 PM SALESFORCE CONSULTANT) [facility] Signature CHOLESTEROL, TOTAL 322(H) <200 mg/dL [facility] HDL CHOLESTEROL 68 > OR = 50 mg/dL [facility] TRIGLYCERIDES 803(H) <150 mg/dL [facility] Comment: If a non-fasting specimen was collected, consider repeat triglyceride testing on a fasting specimen if clinically indicated. Sexton et al. J. of Clin. Lipidol. 2015;9:129-169. There is increased risk of pancreatitis when the triglyceride concentration is very high (> or = 500 mg/dL, especially if > or = 1000 mg/dL). Sexton et al. J. of Clin. Lipidol. 2015;9:129-169. LDL-CHOLESTEROL [facility] Comment: LDL cholesterol not calculated. Triglyceride levels greater than 400 mg/dL invalidate calculated LDL results. Reference range: <100 Desirable range <100 mg/dL for primary prevention; <70 mg/dL for patients with CHD or diabetic patients with > or = 2 CHD risk factors. LDL-C is now calculated using the Mike-Ellis calculation, which is a validated novel method providing better accuracy than the Friedewald equation in the estimation of LDL-C. Mike SS et al. ANAT. 2013;310(28): 5149-1422 (http://education.VisualDNA/faq/LEJ122) CHOL/HDLC RATIO 4.7 <5.0 (calc) [facility] NON HDL CHOLESTEROL 254(H) <130 mg/dL (calc) [facility] Comment: Non-HDL level > or = 220 is very high and may indicate genetic familial hypercholesterolemia (FH). Clinical assessment and measurement of blood lipid levels should be considered for all first-degree relatives of patients with an FH diagnosis. For patients with diabetes plus 1 major ASCVD risk factor, treating to a non-HDL-C goal of <100 mg/dL (LDL-C of <70 mg/dL) is considered a therapeutic option. Blood BLOOD SPECIMEN / Unknown 08/14/2024 1:17 PM SALESFORCE CONSULTANT 08/14/2024 1:17 PM SALESFORCE CONSULTANT Angelique Wilson MD CHEMISTRY Final Result [facility] [address] [place] [address], [facility] [address] [address] * SDNA-FIT EXTERNAL (COLOGUARD) (01/03/2024 11:50 AM CDT) NONINV COLON CA DNA+OCC BLD SCRN STL-IMP Negative Negative 01/07/2024 6:12 PM CDT [employer] (CLIA #:[id number]) Comment: NEGATIVE TEST RESULT. A negative Cologuard result indicates a low likelihood that a colorectal cancer (CRC) or advanced adenoma (adenomatous polyps with more advanced pre-malignant features) is present. The chance that a person with a negative Cologuard test has a colorectal cancer is less than 1 in 1500 (negative predictive value >99.9%) or has an advanced adenoma is less than 5.3% (negative predictive value 94.7%). These data are based on a prospective cross-sectional study of 10,000 individuals at average risk for colorectal cancer who were screened with both Cologuard and colonoscopy. (Bowen Kennedy, N Engl J Med 2014;370(14):8069-7173) The normal value (reference range) for this assay is negative. COLOGUARD RE-SCREENING RECOMMENDATION: Periodic colorectal cancer screening is an important part of preventive healthcare for asymptomatic individuals at average risk for colorectal cancer. Following a negative Cologuard result, the [place] [employer] and U.S. Multi-Society Task Force screening guidelines recommend a Cologuard re-screening interval of 3 years. References: [place] [employer] Guideline for Colorectal Cancer Screening: https://www.cancer.org/cancer/bween-csuoyf-buizri/djmkiyfdd-djtsofaur-dryaprz/ac s-rec ommendations.html.; Nilesh DK, Billy HIDALGO, Pascual JcK, Colorectal Cancer Screening: Recommendations for Physicians and Patients from the U.S. Multi-Society Task Force on Colorectal Cancer Screening , Am J Gastroenterology 2017; 112:2518-9578. TEST DESCRIPTION: Composite algorithmic analysis of stool DNA-biomarkers with hemoglobin immunoassay. Quantitative values of individual biomarkers are not reportable and are not associated with individual biomarker result reference ranges. Cologuard is intended for colorectal cancer screening of adults of either sex, 45 years or older, who are at average-risk for colorectal cancer (CRC). Cologuard has been approved for use by the U.S. FDA. The performance of Cologuard was established in a cross sectional study of average-risk adults aged 50-84. Cologuard performance in patients ages 45 to 49 years was estimated by sub-group analysis of near-age groups. Colonoscopies performed for a positive result may find as the most clinically significant lesion: colorectal cancer [4.0%], advanced adenoma (including sessile serrated polyps greater than or equal to 1cm diameter) [20%] or non- advanced adenoma [31%]; or no colorectal neoplasia [45%]. These estimates are derived from a prospective cross-sectional screening study of 10,000 individuals at average risk for colorectal cancer who were screened with both Cologuard and colonoscopy. (Imperiale T. et al, N Engl J Med 2014;370(14):2887-6717.) Cologuard may produce a false negative or false positive result (no colorectal cancer or precancerous polyp present at colonoscopy follow up). A negative Cologuard test result does not guarantee the absence of CRC or advanced adenoma (pre-cancer). The current Cologuard screening interval is every 3 years. ([place] [employer] Society and U.S. Multi-Society Task Force). Cologuard performance data in a 10,000 patient pivotal study using colonoscopy as the reference method can be accessed at the following location: [email or web address]/results. Additional description of the Cologuard test process, warnings and precautions can be found at [email or web address]. Stool specimen (specimen) (Rectum) 01/03/2024 11:50 AM CDT 01/04/2024 6:39 AM CDT us Angelique Wilson MD URINE Final Result Performing Organization Address [facility] Co de Phone Number [employer] (CLIA #:[id number]) [address] [place] [address], * ANTI HCV (09/24/2023 11:20 AM CDT) HEPATITIS C ANTIBODY Non-Reacti ve Non-React gayle 09/27/2023 3:56 PM CDT [employer] Comment:Please note, per www .CDC.gov: If a patient is known to be at high risk of HCV infection, or is symptomatic, and the physician's suspicion of HCV infection is high, HCV RNA testing is often employed and is of diagnostic value, even after an initial negative anti-HCV test result. Blood BLOOD SPECIMEN / Unknown Venipuncture / Unknown 09/24/2023 11:20 AM CDT 09/24/2023 11:23 AM CDT us Mike Marcial MD SEND OUTS Final Res ult Performing Organization Address [facility] Co de Phone Number [facility] [address] [place], [place] [address] from Last 3 Months or Most Recently Relevant to Health Maintenance Insurance [facility] ATTN: [place] [address] [facility] [employer] [facility] MR MEDICARE PART A HB ONLY [facility] AETNA MEDICARE PPS [facility] Advance Directives * Full Code (Latest Code Status on File) Date Activated Date Inactivated Comments 05/02/2024 6:00 PM 05/05/2024 6:54 PM Question Answer Comments Code Status Discussion: Reviewed Preferences * Full Code Date Activated Date Inactivated Comments 01/28/2024 9:37 AM 01/28/2024 3:16 PM Question Answer Comments Code Status Discussion: Reviewed Preferences * Full Code Date Activated Date Inactivated Comments 10/25/2023 4:00 AM 10/29/2023 2:11 PM Question Answer Comments Code Status Discussion: Reviewed Preferences * Full Code Date Activated Date Inactivated Comments 02/19/2022 7:33 PM 03/26/2022 2:38 PM Question Answer Comments Code Status Discussion: Other Care Teams Physiotherapy Practice Manager Relationship Specialty Start Date End Date Angelique Wilson MD [address] [place] [address] PCP - General Family Practice 08/12/15 Simi Hensley PsyD, LP [address] [place] [address] Psychology 09/07/21 Anai Andrews, PARCEL POST OFFICER [address] [place] [id number] Nurse Practitioner - Mental Health 06/04/[address] [place] [id number] Mixer Operator Executive Vp 07/23/22 [place] [address] [place] [address] Pulmonology Pulmonary Medicine 01/02/24 Harmony Cadena, AbD [address] [place] [address] Pharmacist Medication Management Pharmacology 02/03/24 02/02/27 Radha Jorgensen, PARCEL POST OFFICER [address] [place] [address] Oncology 05/27/24 Irma Hein MD [address] [place] [address] Oncology 05/27/24 [place] [address] [place] [address] Endocrinology Endocrinology 06/15/24 Janet Santana PA [address] [place] [address] Physician Diamond Cutter 06/24/24 [place] [address] [place] [address] Rheumatology 07/21/24 Celina Rudd, AbD [address] [place] [address] Pharmacist Medication Management Pharmacology 08/13/24 08/13/27"
--- OUTSIDE RECORDS SUMMARY | 2024-12-29 15:00 | XMS_ITS | Clinical Summary ---
Author Organization [facility] Address [address] [place] [address] Care Team Providers Care Recruitment Consultant Name Role Phone Elsewhere, Pcp Primary Care Provider Unavailabl e Source Comments Patient records contain information from all sites at [facility]. For routine questions regarding patient records, call [phone] during business hours, M-F 8:00 AM - 5:00 PM Central Time. Record requests for emergency care only can be directed to [phone] at any time.[facility] Allergies Active Allergy Reactions Criticality Noted Date Comments Escitalopram Other (see comments) High 12/10/2013 Suicidal ideation Lamotrigine Other (see comments) 02/11/2021 fevers Escitalopram Oxalate Other (see comments) 02/11 Suicidal thoughts Liraglutide Rash 11/30/2021 Topiramate Other (see comments) 03/10/2020 Medications * This document contains information received from the source organization and may not represent a complete record from that organization. albuterol 90 mcg/actuation inhaler Inhale 2 puffs every 4 (four) hours as needed for wheezing. Active atorvastatin (LIPITOR) 10 mg tablet Take 10 mg by mouth at bedtime. Active FLUoxetine (PROzac) 40 mg capsule Take 40 mg by mouth every morning. Takes w/ additional 10mg tablet to equal 50mg daily. Active FLUoxetine (PROzac) 10 mg capsule Take 10 mg by mouth every morning. Pt takes w/ additional 40mg capsule to equal 50mg daily/. Active fluticasone propionate (FLONASE) 50 mcg/actuation nasal spray Administer 2 sprays into each nostril every morning. Active hydrocortisone (ANUSOL-HC) 25 mg suppository Insert 25 mg into the rectum 2 (two) times a day as needed for hemorrhoids. Active SITagliptin (JANUVIA) 100 mg tablet Take 100 mg by mouth every morning. Active liothyronine (CYTOMEL) 5 mcg tablet Take 5 mcg by mouth every morning. Active losartan (COZAAR) 100 mg tablet Take 100 mg by mouth every morning. Active metFORMIN XR (GLUCOPHAGE-XR) 500 mg 24 hr tablet Take 500 mg by mouth 2 (two) times a day with meals. Active multivitamin tablet Take 1 tablet by mouth every morning. Active propranoloL (INDERAL LA) 60 mg 24 hr capsule Take 60 mg by mouth 2 (two) times a day. Active levothyroxine (SYNTHROID, LEVOTHROID) 88 mcg tablet Take 88 mcg by mouth every morning before breakfast. Active triamcinolone (KENALOG) 0.1 % cream Apply 1 application topically 3 (three) times a day as needed. Apply to rash Active cholecalciferol (VITAMIN D3) 50 mcg (2,000 Unit) tablet Take 50 mcg by mouth every evening. Active BLOOD SUGAR DIAGNOSTIC, DISC [facility] AUCUCHECK METER 04/28/20 20 Active lancets 33 gauge [facility] See Admin Instructions. 11/15/19 21 Active LORazepam (ATIVAN) 0.5 mg tablet Take 0.5 mg by mouth 2 (two) times a day as needed. 03/21/20 21 Active prochlorperazin e (COMPAZINE) 10 mg tablet as directed. TAKE ONE TABLET BY MOUTH EVERY 8 HOURS NEEDED FOR NAUSEA AND VOMITING 04/02/20 21 Active magnesium 250 mg tablet Take by mouth at bedtime. Active glipiZIDE (GLUCOTROL) 10 mg tablet Take 10 mg by mouth 2 (two) times a day before breakfast and dinner. 05/02/20 21 Active cetirizine (ZyrTEC) 10 mg tablet Take 10 mg by mouth daily. Active sennosides-docu sate sodium (Senna with Docusate Sodium) 8.6-50 mg per tablet Take 1 tablet by mouth at bedtime as needed for constipation. Active acetaminophen (TYLENOL) 500 mg tablet Take 2 tablets (1,000 mg total) by mouth every 6 (six) hours as needed for pain. 05/10/20 Active ibuprofen (ADVIL,MOTRIN) 200 mg tablet Hold for 2 weeks after surgery. 05/24/20 Active Additional Information Patient not taking.Reported on 05/18/2021 Accu-Chek Guide test strips strips USE TO TEST BLOOD SUGAR TWO TIMES A DAY 05/06/20 Active fluconazole (DIFLUCAN) 150 mg tablet 1 TABLET BY MOUTH ONCE WEEKLY FOR 4 WEEKS 12/02/19 Active ketoconazole (NIZORAL) 2 % cream APPLY TOPICALLY TO AFFECTED AREAS 2 TIMES DAILY 12/02/19 Active hydrOXYzine (VISTARIL) 25 mg capsule TAKE 1-3 CAPSULES BY MOUTH AT BEDTIME NEEDED FOR ANXIETY, SLEEP. 11/15/19 Active Latuda 20 mg tablet TAKE ONE TABLET BY MOUTH EVERY DAY AT 6PM ( TAKE WITH MEAL) 12/02/19 Active metoprolol succinate (TOPROL-XL) 50 mg 24 hr tablet Take 50 mg by mouth daily. 09/30/19 22 Active Ozempic 1 mg/dose (4 mg/3 mL) injection Inject 1 mg under the skin once a week. 12/02/19 Active valACYclovir (VALTREX) 1000 mg tabletIndicatio ns:Herpes Zoster Disseminated Take 1 tablet (1,000 mg total) by mouth 3 (three) times a day. 21 tablet 12/03/19 22 Active levETIRAcetam (KEPPRA) 500 mg tablet Take 1 tablet twice a day for 2 weeks. Take 1 tablet once a day for 1 week. 21 tablet 05/12/20 21 Discontinued methocarbamoL (ROBAXIN) 750 mg tablet Take 1 tablet (750 mg total) by mouth every 6 (six) hours as needed for muscle spasms (Pain). 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 04/20/2021 Hydrocephalus Normal Pressure 04/20/2021 Overview (04/20/2021): Added automatically from request for surgery [id number] Depression Anxiety 04/20/2021 Other Bipolar Disorder 04/20/2021 Patent Foramen Ovale 04/20/2021 Immunizations Immunization Administration Dates Next Due H1N1 Inj 05/11/2009 HZV (ZOSTAVAX) 10/22/2011,09/21/2011 HepB Adult 09/22/2009,05/19/2009,03/14/2009 Influenza TIV (IM) 03/19/2012 Influenza, Injectable, Quadrivalent 03/21/2017 MMR 05/19/2009 PPSV23 09/19/2010 Td Preservative Free (TENIVA C, DECAVAC) 03/14/2009 Tdap 02/18/2012 FELIPE 05/19/2009 influenza trivalent vaccine (6 months and older)(PF) 03/19/2012,04/17/2010 influenza vaccine quad (FLUZONE/FLUARIX) (6 months and older)(PF) 04/01/2020,03/18/2019,03/26/2018,2015,03/30/2015 Family History Medical History Relation Name Comments Alcohol abuse Brother Yan Welch Diabetes Father Yna Welch Hypertension Father Yan Welch Stroke Maternal Grandfather Bubba Espino ve stroke at 57 years old, at 75 Arthritis Maternal Grandmother Beth Yulisa Anxiety disorder Mother Simi Welch Depression Mother Simi Welch Hypertension Mother Simi Welch Obesity Mother Simi Welch Psychiatric Mother Simi Welch Suspected, never treated Tuberculosis Paternal Grandfather Yan Samra Welch I I 1960, shortly thereafter Breast cancer Sister Alexa Griffin Ma y 2019 Relation Name Status Comments Brother Yan Welch Father Yan Welch Maternal Grandfather Bubba A Márquez Maternal Grandmother Beth Márquez Mother Simi Welch Paternal Grandfather Yan Welch II Sister Alexa Griffin Social History Tobacco Use Types Packs/Day Years Used Date Smoking Tobacco: Never Smokeless Tobacco: Never Alcohol Use Standard Drinks/Week Comments Never 0 (1 standard drink = 0.6 oz pur e alcohol) Humiliation, Afraid, Rape, and Kick questionnair e Answer Date Recorded Within the last year, have y ou been afraid of your partner or ex-partner? No 10/18/2021 Within the last year, have y ou been humiliated or emotionally abused in other ways by your partner or ex-partner? Yes Within the last year, have y ou been kicked, hit, slapped, or otherwise physically hurt by your partner or ex-partner? No 10/18/2021 Within the last year, have y ou been raped or forced to have any kind of sexual activity by your partner or ex-partner? No 10/18/2021 Social Connection and Isolation Panel [NHANES] A nswer Date Recorded In a typical week, how many times do you talk on the phone with family, friends, or neighbors? Once a week 10/19/19 How often do you get togethe r with friends or relatives? Never 10/18/2021 How often do you attend [facility] or sabianist services? 1 to 4 times per year 10/18/2021 Do you belong to any clubs o r organizations such as restorationist groups, unions, fraternal or athletic groups, or school groups? Yes 10/18/2021 How often do you attend meet ings of the clubs or organizations you belong to? 1 to 4 times per year 10/18/2021 Are you , , di vorced, , never , or living with a partner? 10/18/2021 AUDIT-C Answer Date Recorded Q1: How often do you have a drink containing alc ohol? Never 10/18/2021 Average Number of Drinks Not on file 022 Frequency of Binge Drinking Not on file 12/2021 Overall Financial Resource Strain (CARDIA) Answe r Date Recorded How hard is it for you to pa y for the very basics like food, housing, medical care, and heating? Not very hard 06/03/2023 [facility] [place] of Occupat ional Health - Occupational Stress Questionnaire Answer Date Recorded Do you feel stress - tense, restless, nervous, or anxious, or unable to sleep at night because your mind is troubled all the time - these days? To some extent 10/18/2021 Exercise Vital Sign Answer Date Recorde d On average, how many days pe r week do you engage in moderate to strenuous exercise (like a brisk walk)? 0 days 06/03/2023 On average, how many minutes do you engage in exercise at this level? 0 min 06/03/2023 Hunger Vital Sign Answer Date Recorded Within the past 12 months, y ou worried that your food would run out before you got the money to buy more. Never true 06/03/20 Within the past 12 months, t he food you bought just didn't last and you didn't have money to get more. Never true 06/03/2023 PRAPARE - Transportation Answer Date Re corded In the past 12 months, has l ack of transportation kept you from medical appointments or from getting medications? No 05/16 In the past 12 months, has l ack of transportation kept you from meetings, work, or from getting things needed for daily living? No 06/03/2023 Nutrition Answer Date Recorded Nutrition: EVOO Fat Source Yes 06/03 On average, how many serving s of fruits and vegetables do you eat per day (serving size is equal to 1 cup or approximately the size of a tennis ball)? 0-2 06/03/2023 Dental Answer Date Recorded Dental: Regular Dentist No 06/03/20 Employment Answer Date Recorded Employment status Permanently disabled Housing Stability Answer Date Recorded What is your living situation today? I have a [facility] place to live 06/03/2023 Education Answer Date Recorded What is the highest level of school you have completed or the highest degree you have received? Associate degree: occupational, technical, or vocational program 03/26/2021 Comments No Sex and Gender Information Value Date Recorded Sex Assigned at Female 03/22/2021 8:28 PM CDT Legal Sex Female 8:58 AM SEPTIC TECHNICIAN Gender Identity Female 03/22/2021 8:28 PM CDT Sexual Orientation Straight 03/22/2021 8: 28 PM CDT Last Filed Vital Signs Vital Sign Reading Time Taken Comments Blood Pressure 137/83 02/16/2022 9:11 PM CDT Pulse 82 02/16/2022 9:11 PM CDT Temperature 36.9 C (98.4 F) 02/16/2022 7:02 PM CDT Respiratory Rate 18 02/16/2022 9:11 PM CDT Oxygen Saturation 97% 02/16/2022 9:11 PM CDT Inhaled Oxygen Concentration - - Weight 70 kg (154 lb 5.2 oz) 02/16/2022 6:56 PM CDT Height 155.7 cm (5' 1.3) 10/20/2021 1:28 PM CDT Body Mass Index 28.88 10/20/2021 1:28 PM CDT Plan of Treatment Health Maintenance Due Date Last Done Comments Bone Density Scan (Osteoporosis Screen) 1958 CT Colonography 1960 Colonoscopy 1958 Diabetic Office Visit with Foot Exam 1958 Dilated Eye Exam 1958 FIT 1958 Hepatitis C Screening 1960 Office Visit for Blood Pressure Check / Re-check 1958 Urine Albumin 1958 Varicella Vaccines (2 of 2 - 13+ 2-dose series) 11/19/2011 10/22/2011, 09/21/2011, 05/19/2009 Zoster Vaccines (2 of 3) 12/17/2011 10/22/2011, 0303/2012 COVID-19 Vaccine ( season) 2024 08/03/2021, 08/24/2020, 08/03/2020 Influenza Vaccine (#1) 2024 , 05/24/2022, 03/21/2021, Additional history exists Depression Screening (Annual PHQ-2) 07/15/2024 Fall Risk Screen (Annual) 07/15/2024 Hemoglobin A1C 08/05/2024 05/05/2024, 08/12/2023, 11/01/2023, Additional history exists Mammogram 12/12/2024 12/13/2023, 11/14, 10/25/2022, Additional history exists Thyroid Stimulating Hormone (TSH) test for thyroid function 05/21/2025 05/21/2024, 04/27/2024, 12/13/2023, Additional history exists Creatinine Level (Kidney Function Test) 05/27/2025 05/27/2024, 05/02/2024, 03/06/2024, Additional history exists Potassium Level 05/27/2025 05/27/2024, 04/14, 12/13/2023, Additional history exists Sodium Level 05/27/2025 05/27/2024, 04/14, 12/13/2023, Additional history exists Cologuard 01/02/2027 01/03/2024 Colorectal Cancer Screening 01/02/2027 Lipid (Cholesterol) Screening 05/05/2029 05/05/2024, 10/02/2022, 02/20/2022, Additional history exists DTaP,Tdap,and Td Vaccines (3 - Td or Tdap) 01/03/2033 01/03/2023, 02/18/2012, 03/14/2009 Hepatitis B Vaccines Completed 09/22/2009, 05/19/2009, 03/14/2009 Pneumococcal vaccine (50+ years) Completed 09/25/2022, 09/19/2010 Hepatitis B Screening Discontinued 09/24/2023 Glucose Test for Med Monitoring Discontinued 05/27/2024, 05/05/2024, 05/05/2024, Additional history exists IPV Vaccines Aged Out No longer eligi ble based on patient's age to complete this topic Medical Devices Implanted Type Area Chief Passenger Ship Steward/Stewardess Device Identifier Shelf Expiration Date Model / Serial / Lot Shnt Vlv Ventric Csf t Std - [id number] Implanted:Qty : 1 on 05/09/2021 by Heather Ying M.D., Ph.D. at [facility] CSF Management Device Right: Brain Codman 02/11/2022 [id number] / / [id number] Shnt Vlv Ventric Csf W/Sphngrd - [id number] Implanted:Qty : 1 on 05/09/2021 by Heather Ying M.D., Ph.D. at [facility] CSF Management Device Right: Cranial Codman 01/11/2026 [id number] / / [id number] Cath Bactiseal Vent 23cm - [id number] Implanted:Qty : 1 on 05/09/2021 by Heather Ying M.D., Ph.D. at [facility] CSF Management Device Right: Neck Codman 11/11/2021 [id number] / / [id number] Plt Mtr Cmf Cover Forest Shnt 17 - [id number] Implanted:Qty : 1 on 05/09/2021 by Heather Ying M.D., Ph.D. at [facility] Hardware e.g. pins/screws/r ods Right: Cranial Depuy Synthes 8 / / Scrw Ti Mtr Slv 1.55x2.55x4 - [id number] Implanted:Qty : 2 on 05/09/2021 by Heather Ying M.D., Ph.D. at [facility] Hardware e.g. pins/screws/r ods Right: Cranial Depuy Synthes 4.01 / / Ocular Lens Ocular Lens Bilateral: Eye Procedures Procedure Name Priority Date/Time Associated Diagnosis Comments BASIC METABOLIC PANEL, S/P Routine 05/22/2021 12:10 PM SEPTIC TECHNICIAN Hydrocephalus Normal Pressure (HCC) THYROID FUNCTION CASCADE, S Routine 04/17/2021 11:49 AM CDT Repeated Falls HEMOGLOBIN A1C, B Routine 03/27/2021 10: 42 AM CDT Hydrocephalus Normal Pressure (HCC) Cognitive Disorder from Last 3 Months or Most Recently Relevant to Health Maintenance Results * (ABNORMAL) Basic Metabolic Panel (05/22/2021 12:10 PM SEPTIC TECHNICIAN) Potassium, S 4.6 3.6 - 5.2 mmol/L 05/22/2021 1:08 PM SEPTIC TECHNICIAN DTL Sodium, S 135 135 - 145 mmol/L 05/22/2021 1:08 PM SEPTIC TECHNICIAN DTL Chloride, S 98 98 - 107 mmol/L 05/22/2021 1:08 PM SEPTIC TECHNICIAN DTL Bicarbonate, S 26 22 - 29 mmol/L 05/22/2021 1:08 PM SEPTIC TECHNICIAN DTL Anion Gap 11 7 - 15 05/22/2021 1:08 PM SEPTIC TECHNICIAN DTL BUN (Blood Urea Nitrogen), S 14 6 - 21 mg/dL 05/22/2021 1:08 PM SEPTIC TECHNICIAN DTL Creatinine 0.71 0.59 - 1.04 mg/dL 05/22/2021 1:08 PM SEPTIC TECHNICIAN DTL eGFR-Non Black/ >90 >=60 mL/min/BSA 05/22/2021 1:08 PM SEPTIC TECHNICIAN DTL Comment: ----ADDITIONAL INFORMATION---- Estimated GFR calculated using the 2009 CKD_EPI creatinine equation. eGFR-Black/Afri can Malagasy >90 >=60 mL/min/BSA 05/22/2021 1:08 PM SEPTIC TECHNICIAN DTL Comment: ----ADDITIONAL INFORMATION---- Estimated GFR calculated using the 2009 CKD_EPI creatinine equation. Calcium, Total, S 9.4 8.8 - 10.2 mg/dL 05/22/2021 1:08 PM SEPTIC TECHNICIAN DTL Glucose, S 202(H) 70 - 140 mg/dL 05/22/2021 1:08 PM SEPTIC TECHNICIAN DTL Blood (Blood, Venous) 05/22/2021 12:10 PM SEPTIC TECHNICIAN 05/22/2021 12:47 PM SEPTIC TECHNICIAN Heather Zhang M.D., Ph.D. LAB BLOOD ADD-ON F inal Result Performing Organization Address City/[facility]/ZIP Co de Phone Number [address] [place] [address] * Thyroid Function [place] (04/17/2021 11:49 AM CDT) TSH, Sensitive 1.5 0.3 - 4.2 mIU/L 04/17/2021 1:13 PM CDT DTL Blood (Blood, Venous) 04/17/2021 11:49 AM CDT 04/17/2021 12:27 PM CDT Angie Parekh M.D. LAB BLOOD ADD-ON F inal Result Performing Organization Address City/[facility]/ZIP Co de Phone Number [facility] [address] DTL [address] [place] [address] * (ABNORMAL) Hemoglobin A1c (03/27/2021 10:42 AM CDT) Hemoglobin A1c, B 8.5(H) 4.0 - 5.6 % 03/27/2021 12:38 PM CDT DTL Comment: Hemoglobin A1c values greater than or equal to 6.5 percent are diagnostic for diabetes mellitus. Diagnosis should be confirmed by repeat testing. In diabetic patients, HbA1c goals should be discussed with healthcare provider. Blood (Blood, Venous) 03/27/2021 10:42 AM CDT 03/27/2021 11:22 AM CDT Alcon Salas M.D. LAB BLOOD ADD-ON Final Result [facility] [address] [place] [address], [facility] [address] [place] [address] from Last 3 Months or Most Recently Relevant to Health Maintenance Insurance [employer] Advance Directives For more information, please contact: [phone] * Full Code (Latest Code Status on File) Date Activated Date Inactivated Comments 05/09/2021 12:13 PM 05/10/2021 1:55 PM Question Answer Comments Full Code: Not Discussed Due to: Not medically appropriate Care Teams Recruitment Consultant Relationship Specialty Start Date End Date Elsewhere, Pcp PCP - General Family Medicine 02/27/21
--- OUTSIDE RECORDS SUMMARY | 2024-12-29 15:00 | XMS_ITS | Encounter Summary ---
Author Organization [facility] Address [address] [place] [address] Care Team Providers Care Glass Rolling Machine Operator Name Role Phone Elsewhere, Pcp Primary Care Provider Unavailabl e Encounter Details Date Type Department Care Team (Latest Contact Info) Description 05/27/2024 Intake [facility] Social History Tobacco Use Types Packs/Day Years [...] Never 10/18/2021 How often do you attend chur ch or anglican services? 1 to 4 times per year 10/18/2021 Do you belong to any clubs o r organizations such as scientology groups, unions, fraternal or athletic groups, or [...] care, and heating? Not very hard 06/03/2023 [facility] [place] of Occupat ional Health - Occupational Stress [...] money to buy more. Never true 06/03/20 23 Within the past 12 months, t he [...] your living situation today? I have a [facility] place to live 06/03/2023 Education Answer Date Recorded What is the highest level of school you have completed or the highest degree you have received? Associate degree: occupational, technical, or vocational program 03/26/2021 Comments No Sex and Gender Information Value Date Recorded Sex Assigned at Female 03/22/2021 8:28 PM CDT Legal Sex Female 8:58 AM LADLE LINER HELPER Gender Identity Female 03/22/2021 8:28 PM CDT Sexual Orientation Straight 03/22/2021 8: 28 PM CDT documented as of this encounter Plan of Treatment Not on file documented as of this encounter Visit Diagnoses Not on filedocumented in this encounter Care Teams Glass Rolling Machine Operator Relationship Specialty Start Date End Date Elsewhere, Pcp PCP - General Family Medicine 02/27/21 documented as of this encounter
--- NOTE | 2024-12-29 15:21 | ED.ABDPAIN ---
HPI - Abdominal Pain General Time Seen by Provider: 15:21 Date Seen: 12/29/24 Chief Complaint: Abdominal Pain Stated Complaint: high blood sugar Time Seen by Provider: 12/29/24 15:09 Source: patient and RN notes reviewed Mode of arrival: ambulatory Limitations: no limitations History of Present Illness HPI narrative: This 64-year-old female is brought in by EMS for hyperglycemia and diabetes. Patient has been diabetic since about age 48, on insulin the last 6 months. Her Dexcom quit function eating last week, she has been out of monitoring of her sugars. She is on short-acting insulin 3 times a day and then a long-acting in the evening. She awoke with abdominal pain around 2:00 a.m.. She was wondering if it could be a kidney stone or infection of the urine. She has never had kidney stones but her sister has. She went to clinic in reportedly had a CT which did not show anything. She states she had a urinalysis and they did do blood work. She did go to [facility]. She did not noted any fevers. Appetite has been diminished today but she did eat a fish sandwich for lunch. She did not take any insulin as she has not been able to check her sugars. She tried going to couple different pharmacies in the do not cell the monitors, she is been contacting her medical people and the prescription company, they state it has been mailed. She notes no chest pain, feels extremely thirsty. She has not noted any urinary symptoms, no diarrhea. EMS did give her Toradol, 50 mcg of fentanyl and 4 mg Zofran with a 500 mL bolus of normal saline. Blood glucose per EMS was 502. Related Data Home Medications ?Medication ?Instructions ?Recorded ?Confirmed albuterol sulfate 90 mcg/actuation 2 puff inhalation QID PRN 12/29/24 12/29/24 aerosol inhaler aspirin 81 mg chewable tablet 81 mg PO DAILY 12/29/24 12/29/24 cetirizine 10 mg tablet 10 mg PO DAILY 12/29/24 12/29/24 fluticasone 250 mcg-salmeterol 50 1 inh inhalation DAILY 12/29/24 12/29/24 mcg/dose blistr powdr for inhalation fluticasone propionate 50 2 spray intranasal DAILY 12/29/24 12/29/24 mcg/actuation nasal spray,suspension insulin aspart U-100 100 unit/mL 19 unit subcut TIDWMEAL 12/29/24 12/29/24 (3 mL) subcutaneous pen (Novolog FlexPen U-100 Insulin aspart) insulin glargine U-300 conc 300 39 unit subcut HS 12/29/24 12/29/24 unit/mL (3 mL) subcutaneous pen (Toujeo Max U-300 SoloStar) levothyroxine 175 mcg tablet 175 mcg PO MOWEFR 12/29/24 12/29/24 levothyroxine 200 mcg tablet 200 mcg PO SUTUTHSA 12/29/24 12/29/24 lidocaine HCl 2 % mucosal solution 1 applic mucous membrane Q3H PRN 12/29/24 12/29/24 liothyronine 5 mcg tablet 5 mcg PO DAILY 12/29/24 12/29/24 lithium carbonate 150 mg capsule 150 mg PO HS 12/29/24 12/29/24 lithium carbonate 300 mg 300 mg PO HS 12/29/24 12/29/24 tablet,extended release lorazepam 0.5 mg tablet 1 mg PO HS 12/29/24 12/29/24 losartan 100 mg tablet 100 mg PO DAILY 12/29/24 12/29/24 melatonin 3 mg capsule 6 mg PO HS 12/29/24 12/29/24 metoprolol tartrate 50 mg tablet 50 mg PO BID 12/29/24 12/29/24 omeprazole 20 mg capsule,delayed 20 mg PO BID 12/29/24 12/29/24 release prochlorperazine maleate 5 mg 5 mg PO Q6H PRN nausea/vomiting 12/29/24 12/29/24 tablet valacyclovir 1 gram tablet 2,000 mg PO BID PRN 12/29/24 12/29/24 Allergies Allergy/AdvReac Type Severity Reaction Status Date / Time No Known Drug Allergies Allergy Verified 12/29/24 15:09 Review of Systems Status of ROS Reports: 6 or more systems reviewed and unremarkable except as noted in History and below PFSH PFS Social History Smoking Status: Never smoker Do you use any of these nicotine containing products: None How often do you have a drink containing alcohol: never How often do you have six or more drinks on one occasion: Never AUDIT-C Alcohol total score: 0 Non-prescribed substance use: denies use service: No Exam Const: Vital Signs, click to edit/add: Vital Signs - 24 hr 12/29/24 15:08 12/29/24 15:09 12/29/24 15:10 Temperature 98 F Pulse Rate 88 87 Pulse Rate [Pulse Oximeter] 91 Respiratory Rate 20 Blood Pressure 159/122 H Blood Pressure [Ri ght Upper Arm] 159/122 H Pulse Oximetry 98 98 98 Oxygen Delivery Me thod Room Air 12/29/24 15:15 12/29/24 15:37 12/29/24 15:39 Temperature Pulse Rate Pulse Rate [Pulse Oximeter] Respiratory Rate 18 16 Blood Pressure 177/80 H Blood Pressure [Ri ght Upper Arm] Pulse Oximetry 99 Oxygen Delivery Me thod 12/29/24 15:45 12/29/24 16:21 12/29/24 16:30 Temperature Pulse Rate 98 97 Pulse Rate [Pulse Oximeter] Respiratory Rate 28 H 26 H 37 H Blood Pressure Blood Pressure [Ri ght Upper Arm] Pulse Oximetry 97 90 Oxygen Delivery Me thod 12/29/24 16:32 12/29/24 16:45 12/29/24 17:00 Temperature Pulse Rate 99 95 87 Pulse Rate [Pulse Oximeter] Respiratory Rate 37 H 7 L 11 L Blood Pressure 174/104 H Blood Pressure [Ri ght Upper Arm] Pulse Oximetry 95 82 L 97 Oxygen Delivery Me thod 12/29/24 17:02 Temperature Pulse Rate 89 Pulse Rate [Pulse Oximeter] Respiratory Rate 36 H Blood Pressure 154/104 H Blood Pressure [Ri ght Upper Arm] Pulse Oximetry 99 Oxygen Delivery Me thod This 64-year-old female is alert, interactive, no apparent distress. Pupils equal round reactive, sclera clear, symmetrical facial function, speech normal. Lungs are clear, good air entry, wheeze or crackles, mildly tachypneic but no accessory muscle use. CV regular rate and rhythm, no murmur, normal S1-S2. Abdomen is soft, nontender, nondistended, no organomegaly, rebound or guarding. No lower extremity edema. Skin without rash. Her skin is warm, she is somewhat sweaty. Documenting provider has reviewed patient's vital signs: yes Course Course ED Course: I am concerned that this patient could have hyperosmolar nonketotic syndrome with her hyperglycemia. She is not giving any symptoms of illness, the lack of monitoring and insulin use may have initiated this. Will initiate a L of IV fluids, give her 10 units regular insulin. Her Accu-Chek here is 548. Will get full complement of labs, will get an EKG and do a troponin on her as well. Want to ensure that she has no atypical presentation acute coronary syndrome with this right flank pain. Will try to look up her records from clinic. Reevaluation(s) Time of Reevaluation #1: 16:15 Reevaluation #1: Recheck blood sugar is 376. Will continue with IV fluids at this point. Consultations Consultation #1: Reviewed with hospitalist Dr. Saeed, she accepts patient. Will make this patient inpatient per her request, she will be doing repeat labs, medical floor for now and not ICU. Hopefully will not need insulin drip. Patient will be updated on plan now. Time: 16:44 Vital Signs Vital signs: Initial Vital Signs Pulse Rate 88 12/29/24 15:08 Blood Pressure 159/122 H 12/29/24 15:08 Blood Pressure Mean 134 H 12/29/24 15:08 Pulse Oximetry 98 12/29/24 15:08 Vital Signs Pulse Rate 88 12/29/24 15:08 Blood Pressure 159/122 H 12/29/24 15:08 Pulse Oximetry 98 12/29/24 15:08 Temperature 98.3 F 12/29/24 17:48 Pulse Rate 89 12/29/24 17:48 Respiratory Rate 20 12/29/24 17:48 Blood Pressure 184/104 H 12/29/24 17:48 Pulse Oximetry 98 12/29/24 17:48 Oxygen Delivery Method Room Air 12/29/24 17:48 Medications Administered Medications: Generic Name Dose Route Start Last Admin Trade Name Freq PRN Reason Stop Dose Admin Sodium Chloride 1,000 mls @ 500 mls/hr 12/29/24 16:15 12/29/24 16:45 0.9 % Sodium Chloride 1000 Ml IV 12/29/24 18:14 500 mls/hr .Q2H VIOLET Administration Discontinued Medications Generic Name Dose Route Start Last Admin Trade Name Freq PRN Reason Stop Dose Admin Sodium Chloride 1,000 mls @ 1,000 mls/hr 12/29/24 15:31 12/29/24 16:44 0.9 % Sodium Chloride 1000 Ml IV 12/29/24 16:30 Infused .Q1H VIOLET Infusion Insulin Human Regular 10 unit 12/29/24 15:30 12/29/24 15:43 Insulin Regular, Human 100 Unit/Ml Vial IVP 12/29/24 15:31 10 unit ONCE ONE Administration MDM - Abdominal Pain Lab Data Attestation: I reviewed the patient's lab results. Labs: Lab Results 12/29/24 12/29/24 Range/Units 15:30 15:35 WBC 7.97 (4.50-11.00) K/uL RBC 4.85 (4.00-5.20) m/uL Hgb 14.1 (12.0-16.0) gm/dL Hct 40.1 (33.0-51.0) % MCV 83 (80-100) fL MCH 29 (26-34) pg MCHC 35 (32-36) gm/dL RDW Coeff of Marty 12.0 (11.5-15.5) % Plt Count 268 (140-440) K/uL Neut % (Auto) 63.1 (42.0-72.0) % Lymph % (Auto) 28.4 (20-44) % Mills % (Auto) 5.9 (0.0-11.0) % Eos % (Auto) 1.1 (0.0-7.0) % Baso % (Auto) 0.9 (0.0-3.0) % Neut # (Auto) 5.03 (1.7-7.0) K/uL Lymph # (Auto) 2.26 (0.90-2.90) K/uL Mills # (Auto) 0.50 (0.00-0.90) K/UL Eos # (Auto) 0.09 (0.00-0.50) K/uL Baso # (Auto) 0.07 (0.00-0.30) K/uL Abs Immat Gran (auto) 0.05 (0.00-0.30) K/uL Imm/Tot Granulo (auto) 0.6 % VBG pH 7.431 H (7.32-7.43) VBG pCO2 29 L (40-50) mmHG VBG pO2 49.8 H (25-47) mmHG VBG HCO3 19 L (21-28) mmol/L Sodium 129 L (135-149) mmol/L Potassium 3.8 (3.6-5.1) mmol/L Chloride 97 (96-114) mmol/L Carbon Dioxide 16 L (20-32) mmol/L Anion Gap 16 H (7-15) mEq/L BUN 13 (7-30) mg/dL Creatinine 0.6 (0.5-1.5) mg/dL Estimated Creat Clear 43.77 Estimated GFR 99 ml/min Glucose 525 H* (60-115) mg/dL Lactate 3.5 H (0.5-1.9) mmol/L Calcium 9.4 (8.4-10.6) mg/dL Total Bilirubin 0.7 (0.1-1.5) mg/dL AST 36 H (12-35) U/L ALT 44 H (4-35) U/L Alkaline Phosphatase 164 H (40-150) U/L Troponin I < 0.01 (0.01-0.04) ng/mL C-Reactive Protein 1.0 (0.5-1.0) mg/dL Total Protein 7.0 (6.0-8.3) g/dL Albumin 4.3 (3.3-5.0) g/dL ECG Data Attestation: I personally reviewed and interpreted this ECG as follows: (Normal sinus rhythm, 92 beats per minute. QT corrected 509 milliseconds. No evidence of any active ischemia or infarct.) ECG interpretation date: 12/29/24 ECG interpretation time: 15:55 Prior ECG tracings: not available for review Discharge Plan Discharge Clinical Impression: Hyperglycemia due to type 2 diabetes mellitus Patient Disposition: Admitted As Inpatient Condition: Improved
[2024-12-29] MEDS: 0.9 % SODIUM CHLORIDE 1000 ml 1,000 ML IV (15:43)
[2024-12-29] MEDS: INSULIN REGULAR, HUMAN 100 UNIT/ML VIAL 10 UNIT IVP (15:43)
[2024-12-29 15:45] LABS: Appearance Urine Clear (Clear); Bilirubin Urine Negative (Negative); Blood Urine Negative (Negative); Color Urine Light yellow (Yellow); Glucose Urine 2+ (Negative); Ketones Urine 1+ (Negative); Leukocyte Esterase Urine Negative (Negative); Nitrite Urine Negative (Negative); Protein Urine Negative (Negative); Specific Gravity Urine <= 1.005 (1.000-1.030); Urobilinogen Urine 0.2 (0.2-1.0)
[2024-12-29 15:48] LABS: HCO3 VBG 19 mmol/L (21-28); Lactate* 3.5 mmol/L (0.5-1.9); PCO2 VBG 29 mmHG (40-50); PO2 VBG 49.8 mmHG (25-47); pH VBG 7.431 (7.32-7.43)
[2024-12-29 15:56] LABS: Basophils Absolute Auto 0.07 K/uL (0.00-0.30); Basophils Percent Auto 0.9 % (0.0-3.0); Eosinophils Absolute Auto 0.09 K/uL (0.00-0.50); Eosinophils Percent Auto 1.1 % (0.0-7.0); Hematocrit 40.1 % (33.0-51.0); Hemoglobin* 14.1 gm/dL (12.0-16.0); Immature Granulocytes Abs Auto 0.05 K/uL (0.00-0.30); Immature Granulocytes Pct Auto 0.6 %; Lymphocytes Absolute Auto 2.26 K/uL (0.90-2.90); Lymphocytes Percent Auto 28.4 % (20-44); Mean Corpuscular HGB Conc 35 gm/dL (32-36); Mean Corpuscular Hemoglobin 29 pg (26-34); Mean Corpuscular Volume 83 fL (80-100); Monocytes Percent Auto 5.9 % (0.0-11.0); Neutrophils Absolute Auto 5.03 K/uL (1.7-7.0); Neutrophils Percent Auto 63.1 % (42.0-72.0); Platelet Count* 268 K/uL (140-440); Red Blood Count 4.85 m/uL (4.00-5.20); White Blood Count* 7.97 K/uL (4.50-11.00)
[2024-12-29 16:05] LABS: Albumin* 4.3 g/dL (3.3-5.0); Chloride* 97 mmol/L (96-114); Potassium* 3.8 mmol/L (3.6-5.1); Sodium* 129 mmol/L (135-149)
--- OUTSIDE RECORDS SUMMARY | 2024-12-29 16:06 | XMS_ITS | Clinical Summary ---
Author Organization [facility] Address [address] , [address] [place] [address] Phone Care Team Providers Care Slot Machine Floor Person Name Role Phone [facility] Unavailable Unava ilable Conditions or Problems Problem Name Problem Code Onset Date Status Entry Date Provider Comment Standard Description Annotate Ulnar neuropathy, left 828909925 (SNOMED CT) 08/13 Active 08/13 Rell Sorto MD Ulnar neuropathy Left median neuropathy 066991516 (SNOMED CT) 08/13 Active 08/13 Rell Sorto MD Median neuropathy Gait imbalance 846203558 (SNOMED CT) 03/07 Active 03/07 Patricia Mullins MD Abnormal gait due to impairment of balance Normal pressure hydrocephalu s 38725544 (SNOMED CT) 03/07 Active 03/07 Patricia Mullins MD Normal pressure hydrocephalus Vitamin D deficiency 84904121 (SNOMED CT) 01/05 Active 03/07 Patricia Mullins MD Vitamin D deficiency Type 2 diabetes mellitus without complication , without long-term E11.9 (ICD-10-CM ) 03/20 Active 03/07 Patricia Mullins MD Type 2 diabetes mellitus without complications Panic disorder 767998455 (SNOMED CT) 12/03 Active 03/07 Patricia Mullins MD Panic disorder PTSD (post-trauma tic stress disorder) F43.10 (ICD-10-CM ) 12/05 Active 03/07 Patricia Mullins MD Post-traumatic stress disorder, unspecified PFO (patent foramen ovale) Q21.1 (ICD-10-CM ) 11/02 Active 03/07 Patricia Mullins MD Atrial septal defect Hypothyroid 34844129 (SNOMED CT) 12/25 Active 03/07 Patricia Mullisn MD Hypothyroidism Hyperlipidem ia 02560437 (SNOMED CT) 01/05 Active 03/07 Patricia Mullins MD Hyperlipidemia HTN (hypertensio n) I10 (ICD-10-CM ) 01/05 Active 03/07 Patricia Mullins MD Essential (primary) hypertension Bipolar affective disorder, depressed, severe 935619128 (SNOMED CT) 12/18 Active 03/07 Patricia Mullins MD Bipolar affective disorder, current episode depression INSOMNIA 992923106 (SNOMED CT) 07/27 Resolved 07/28 Gurmeet Resendez [...] Resendez Jr, MD Sleep disorder, unspecified INSOMNIA 716409533 (SNOMED CT) 07/27 Removed 07/28 Gurmeet Resendez Jr, MD Insomnia SNORING 52871921 (SNOMED CT) 08/31 Active 08/31 Tad Berry MD Snoring NUMBNESS 30097704 (SNOMED CT) 08/31 Active 08/31 Tad Berry MD Numbness Medications Medication Instructions Start Date Stop Date Generic Name NDC Provider TRIAMCINOLONE ACETONIDE 0.1 % PSTE Apply small amount to affected area in mouth 2 times a day. triamcinolone 0.1% (KENALOG IN ORABASE) 0.1 % paste [id number] Patricia Mullins MD TRIAMCINOLONE ACETONIDE 0.1 % CREA Apply topically to affected area(s) 3 times daily. triamcinolone (ARISTOCORT; KENALOG) 0.1 % cream [id number] Patricia Mullins MD TETRACYCLINE HCL 250 MG CAPS Open capsule and mix with 1 fluid ounce water. Swish and spit 4 times a day for 4 days. tetracycline (SUMYCIN) 250 mg capsule [id number] Patricia Mullins MD PROPRANOLOL HCL ER 60 MG [id number] Take one capsule by mouth twice daily propranolol ER (Inderal LA) 60 mg Cs24 Sustained-Release cap [id number] Patricia Mullins MD PREDNISONE 20 MG TABS Take 2 Tablets (40 mg) by mouth once daily for 5 days. predniSONE (DELTASONE) 20 mg tablet [id number] Patricia Mullins MD ONDANSETRON [address] 1 tablet on the tongue every 8 hours if needed for Nausea/Vomiti ng. ondansetron (ZOFRAN ODT) 8 mg disintegrating tablet [id number] Patricia Mullins MD LNMOCNUC-IJCUNLKYG-D C 3.5-32496-[address] 3 Drops into right ear 3 times daily. botzucck-elcrpdgwn-d ydrocortisone (CORTISPORIN OTIC) otic barraza 90104116396 Patricia Mullins MD MOMETASONE FUROATE 0.1 % CREA Apply topically to affected area(s) 2 times daily. mometasone 0.1% (ELOCON 0.1% CREAM) 0.1 % cream 91440738751 Patricia Mullins MD METHYLPREDNISOLONE 4 MG TBPK Take by mouth as instructed per packaging. methylPREDNISolone (Medrol, Spencer,) 4 mg tablet 96734194693 Patricia Mullins MD METFORMIN HCL ER 500 MG [id number] Take 1 tablet by mouth twice a day with meals for diabetes. metFORMIN (GLUCOPHAGE XR) 500 mg Extended-Release tablet [id number] Patricia Mullins MD MECLIZINE HCL 12.5 MG TABS Take 1 tablet by mouth 3 times daily if needed. meclizine (ANTIVERT) 12.5 mg tablet [id number] Patricia Mullins MD magic mouthwash w/nystatin,benadryl, lidocaine,prednisolo ne & maalox 80ml 2% viscous lidocaine. 80ml Mylanta or Maalox. 80ml Nystatin 100,000units/ mL. 80ml diphenhydrami ne. 80 ml prednisolone 15mg per 5ml solution. Swish & spit 15cc BID magic mouthwash w/nystatin,benadryl, lidocaine,prednisolo ne & Patricia Mullins MD LOSARTAN POTASSIUM 100 MG TABS Take 1 tablet by mouth once daily. losartan (COZAAR) 100 mg tablet [id number] Patricia Mullins MD LITHIUM CARBONATE 150 MG CAPS Take 1 tab in the AM and 2 tabs in the PM. lithium carbonate (LITHONATE) 150 mg capsule [id number] Patricia Mullins MD LIOTHYRONINE SODIUM 5 MCG TABS Take 1 tablet by mouth once daily. liothyronine (CYTOMEL) 5 mcg tablet [id number] Patricia Mullins MD lancets (OneTouch Delica Plus Lancet) 33 gauge misc Test daily as directed lancets (OneTouch Delica Plus Lancet) 33 gauge misc Patricia Mullins MD HYDROCORTISONE ACETATE 25 MG SUPP Insert 1 Suppository (25 mg) rectally 2 times daily. hydrocortisone (ANUSOL-HC SUPPOSITORY) 25 mg suppository [id number] Patricia Mullins MD HYDROXYZINE PAMOATE 25 MG CAPS TAKE 1-3 CAPSULES BY MOUTH AT BEDTIME NEEDED FOR SLEEP hydrOXYzine pamoate (VISTARIL) 25 mg capsule [id number] Patricia Mullins MD GLIPIZIDE 5 MG TABS Take 1 Tablet (5 mg) by mouth 2 times daily before meals. glipiZIDE (GLUCOTROL) 5 mg tablet [id number] Patricia Mullins MD FLUTICASONE PROPIONATE 50 MCG/ACT SUSP TAKE 2 SPRAYS IN EACH NOSTRIL ONCE A DAY fluticasone (50 mcg per actuation) nasal solution (FLONASE) [id number] Patricia Mullins MD FLUTICASONE PROPIONATE 50 MCG/ACT SUSP Inhale 1 [place] into both nostrils once daily. fluticasone (50 mcg per actuation) nasal solution (FLONASE) [id number] Patricia Mullins MD FLUCONAZOLE 150 MG TABS Take one tablet now and repeat in 72 hours if symptoms have not resolved fluconazole (DIFLUCAN) 150 mg tablet [id number] Patricia Mullins MD ESZOPICLONE 3 MG TABS Take 1 tablet by mouth at bedtime. eszopiclone (LUNESTA) 3 mg tablet [id number] Patricia Mullins MD ESTRADIOL 10 MCG TABS INSERT ONE TABLET VAGINALLY TWICE A WEEK FOR MAINTENANCE estradiol (YUVAFEM) 10 mcg tab vaginal tablet [id number] Patricia Mullins MD DOXYCYCLINE HYCLATE 100 MG TABS Take 1 Tablet (100 mg) by mouth 2 times daily for 5 days. doxycycline (VIBRAMYCIN) 100 mg tablet [id number] Patricia Mullins MD GUAIFENESIN-CODEINE 100-10 MG/5ML SOLN Take 5 mL by mouth every 6 hours if needed for Cough. Max dose 60 mL per 24 hrs. codeine-guaiFENesin (ROBITUSSIN AC) 10-100 mg/5 mL liquid [id number] Patricia Mullins MD CLOBETASOL PROPIONATE 0.05 % CREA Apply topically to affected area(s) 2 times daily. clobetasol cream 0.05% (TEMOVATE) 0.05 % cream [id number] Patricia Mullins MD VITAMIN D3 50 MCG (2000 UT) CAPS Take 1 capsule by mouth once daily. cholecalciferol (VITAMIN D-3) 2,000 unit capsule [id number] Patricia Mullins MD BUPROPION HCL ER (XL) 150 MG [id number]-EVE Take 1 tablet by mouth every morning. buPROPion (WELLBUTRIN XL) 150 mg Extended-Release tablet [id number] Patricia Mullins MD blood sugar diagnostic (OneTouch Ultra Blue Test Strip) strip Use to test blood sugar daily as directed blood sugar diagnostic (OneTouch Ultra Blue Test Strip) stri Patricia Mullins MD AZITHROMYCIN 250 MG TABS Two tablets the first day, one daily days 2-5 azithromycin (Zithromax Z-Spencer) 250 mg tablet [id number] Patricia Mullins MD ATORVASTATIN CALCIUM 10 MG TABS Take 1 tablet by mouth at bedtime. atorvastatin (LIPITOR) 10 mg tablet [id number] Patricia Mullins MD ASPIRIN 81 MG TBEC Take 1 tablet by mouth once daily with a meal. aspirin (ECOTRIN) 81 mg enteric coated tablet [id number] Patricia Mullins MD ALBUTEROL SULFATE HFA 108 (90 Base) MCG/ACT AERS Inhale 1-2 Puffs by mouth every 4 hours if needed. albuterol HFA (PRO-AIR; VENTOLIN; PROVENTIL) 90 mcg/actuatio [id number] Patricia Mullins MD SYNTHROID 88 MCG TABS Take 1 tablet by mouth once daily. Synthroid 88 mcg tablet [id number] Patricia Mullins MD SITagliptin (JANUVIA) 100 mg [...] EACH MORNING. FLUoxetine (PROZAC) 40 mg capsule [id number] Patricia Mullins MD Codeine-guaFENesin 6.3-100 mg/5 mL liqd Take 15 mL by mouth every 6 hours if needed. Codeine-guaFENesin 6.3-100 mg/5 mL liqd Patricia Mullins MD DIVALPROEX SODIUM ER 500 MG [id number] TK ONE T PO D 09/11 DIVALPROEX SODIUM [id number] Gurmeet Resendez Jr, MD PLAVIX 75 MG TABS one PO daily 08/31 CLOPIDOGREL BISULFATE [id number] Tad Berry MD CLONAZEPAM 0.5 MG TBDP 08/31 CLONAZEPAM [id number] Tad Berry MD ZIPRASIDONE HCL 20 MG CAPS TK ONE C PO BID WITH FOOD 09/11 ZIPRASIDONE HCL [id number] Tad Berry MD DIVALPROEX SODIUM ER 500 MG [id number] TK ONE T PO D 09/11 DIVALPROEX SODIUM [id number] Tad Berry MD FLUOXETINE HCL 20 MG CAPS TK ONE C PO D 09/11 FLUOXETINE HCL [id number] Tad Berry MD GLIPIZIDE ER 5 MG [id number] TK 2 TS PO IN THE MORNING AND 1 T IN THE EVENING GLIPIZIDE [id number] Tad Berry MD LOSARTAN POTASSIUM 100 MG TABS TK ONE T PO D 09/01 LOSARTAN POTASSIUM [id number] Tad Berry MD HYDROCHLOROTHIAZIDE 50 MG TABS TK ONE T PO D 12/31 HYDROCHLOROTHIAZIDE 48010940768 Tad Berry MD LEVOTHYROXINE SODIUM 100 MCG TABS TK ONE T PO D 07/23 LEVOTHYROXINE SODIUM 57738545017 aTd Berry MD ATORVASTATIN CALCIUM 20 MG TABS TK ONE T PO HS 02/17 ATORVASTATIN CALCIUM [id number] Tad Berry MD AMLODIPINE BESYLATE 5 MG TABS TK ONE T PO D 02/17 AMLODIPINE BESYLATE [id number] Tad Berry MD METOPROLOL SUCCINATE ER 25 MG [id number] TK 1 T PO HS 10/20 METOPROLOL SUCCINATE [id number] Tad Berry MD FLUOXETINE HCL 10 MG TABS TK 3 CS PO QAM 10/23 FLUOXETINE HCL 81659167895 Tad Berry MD METFORMIN HCL ER 500 MG [id number] TK 2 TS QAM AND 2 TS HS 02/20 METFORMIN HCL [id number] Tad Berry MD Medications Administered No information [...] medications (procedure) SMOK 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 Internal Other: Authorizatio n - [...] Release information to the Health Information Exchange ([employer]) Plan of Care Type Date Detail Pending order Other Radiology Pending order MRI-Cervical W/O Pending order MRI-Cervical W/O Pending Order exclud ed from report: Pending order Other Radiology Procedures Code Procedure Name Date Entry Date CPT-16970 Nerve Conduction 7-8 studies CPT-02421 EMG with NCS (5+ muscles) - 1 limb 08/13 [id number] MRI-Cervical W/O [facility]-[id number] Documentation of current medicatio ns CPT-54823 Multiple Sleep Laten cy Testing - 4+ naps (24287) CPT-19893 PSG, 4+ parameters w / tech - 6yrs or older (46477) Vital Signs Date Name Value Unit Description [...]
[2024-12-29 16:08] LABS: Alanine Aminotransferase* 44 U/L (4-35); Alkaline Phosphatase* 164 U/L (40-150); Anion Gap 16 mEq/L (7-15); Aspartate Amino Transferase* 36 U/L (12-35); Bilirubin Total* 0.7 mg/dL (0.1-1.5); Blood Urea Nitrogen* 13 mg/dL (7-30); Carbon Dioxide* 16 mmol/L (20-32); Creatinine* 0.6 mg/dL (0.5-1.5); Est. Creatinine Clearance* 43.77; Estimated Glomerular Filt Rate 99 ml/min
[2024-12-29 16:09] LABS: Calcium* 9.4 mg/dL (8.4-10.6)
[2024-12-29 16:17] LABS: RBC Urine 0-2 (0-2); Squamous Epithelial Cell Urine Few (None-Few); WBC Urine 0-2 (0-5)
[2024-12-29 16:19] LABS: Slide Review Reflex No
[2024-12-29 16:33] LABS: Glucose* 525 mg/dL (60-115); Troponin I* < 0.01 ng/mL (0.01-0.04)
[2024-12-29] MEDS: 0.9 % SODIUM CHLORIDE 1000 ml 1,000 ML 500 ML IV (16:45)
--- NOTE | 2024-12-29 18:17 | PM.IMHP1 ---
Assessment and Plan Assessment and plan (1) Hyperglycemia due to type 2 diabetes mellitus: Problem comment: - presenting BG of >500 with elevated lactate, no acidosis - improved with IVFs and Regular insulin in ER - repeat VBG stable, lactate down trending - will treat with home insulin + SSI, follow closely - no evidence of acute infectious process Status: Acute (2) Insulin dependent type 2 diabetes mellitus, uncontrolled: Problem comment: - last A1C 10.0 (11/2024), follows with Dr. Dangelo of Endocrinology Status: Acute (3) Hyponatremia: Problem comment: - 129 in ER, corrected to 136 for hyperglycemia Status: Acute (4) Elevated liver enzymes: Problem comment: - mild, noted in Epic chart in 2023 as well, likely 2/2 known fatty liver disease - outpatient f/u Status: Acute Plan - per above - continue home medications for comorbidities - requires inpatient admission given BG >500, elevated lactate, need for close BG monitoring Hospitalist- H&P: HPI History of Present Illness Date Seen: 12/29/24 Chief complaint: high blood sugar Narrative: Beth Hayden is a 64 year old female with a history of poorly controlled insulin dependent Type II DM who presented to the ER by ambulance from clinic for hyperglycemia in the setting of abdominal pain. She was seeing her PCP (Dr. Wilson) for a sick visit after waking up with severe R sided flank pain. She was concerned about a kidney stone (+ family history of this). During appointment, CT revealed hepatomegaly, hepatic steatosis, a nonobstructing 2mm stone in the lower pole of R kidney, and a normal appendix. Sugar >444, + glucosuria and ketonuria; sent to ER by ambulance for these findings + intractable pain. En route, given Fentanyl by EMS with pain resolution. ER: - Glucose 525, AG 15, lactate 3.5 - VBG: pH of 7.431, HCO3 19 - K of 3.8, Na 129 (corrected 136), creatinine 0.6 - UA notable for glucosuria and ketonuria, no other abnormalities - flank pain resolved - given 10U of regular insulin and IVF bolus --> BG 376 Beth has known DM2, last A1C 10.0 (11/2024); she hasn't had her Dexcom for one week so has not been taking insulin regularly. A new Dexcom has been mailed to her but she doesn't have it yet. She does not have an alternative BG monitor. Last took her Toujeo (39U on HS) 2 days ago, hasn't been taking mealtime Novolog (19U TID with meals) for 1-2 days either. Upon arrival to the floor, she is alert and oriented, eating. Histories reviewed, PCP is Dr. Wilson at the [facility]. Review of Systems Status of ROS: Reports: 10 or more systems reviewed and unremarkable except as noted in History and below Narrative: - no recent illness Medical Decision Making Medical Decision Making Code Status: Full Has patient completed a Health Care Directive: No During This Stay, Who Would You Like To Make Decisions For You In The Event You Are Unable To Make Them For Yourself?: Daughter Bella ([phone]) Relevant situational information: Very recent separation from who would have previously been MDM [facility] Medical History (Updated 12/29/24 @ 21:06 by Liza Saeed MD) Interstitial lung disease ?J84.9 - Interstitial pulmonary disease, unspecified (ICD-10) Family history of breast cancer ?Z80.3 - Family history of malignant neoplasm of breast (ICD-10) Insulin dependent type 2 diabetes mellitus, uncontrolled Normal pressure hydrocephalus (05/05/21) ?G91.2 - (Idiopathic) normal pressure hydrocephalus (ICD-10) Mixed anxiety depressive disorder (04/20/21) ?F41.8 - Other specified anxiety disorders (ICD-10) Lacunar stroke (05/04/24) ?I63.81 - Other cerebral infarction due to occlusion or stenosis of small artery (ICD-10) Insomnia (07/27/13) ?G47.00 - Insomnia, unspecified (ICD-10) Hypothyroid (12/25/12) ?E03.9 - Hypothyroidism, unspecified (ICD-10) Hyperlipidemia (01/05/14) ?E78.5 - Hyperlipidemia, unspecified (ICD-10) Gastroesophageal reflux (10/25/23) ?K21.9 - Gastro-esophageal reflux disease without esophagitis (ICD-10) Bipolar 1 disorder, manic, moderate (03/26/22) ?F31.12 - Bipolar disorder, current episode manic without psychotic features, moderate (ICD-10) Surgical History (Updated 12/29/24 @ 20:04 by Liza Saeed MD) S/P total abdominal hysterectomy ?Z90.710 - Acquired absence of both cervix and uterus (ICD-10) S/P CHLORINATOR OPERATOR shunt (05/05/21) ?Z98.2 - Presence of cerebrospinal fluid drainage device (ICD-10) Social History (Updated 12/29/24 @ 20:05 by Liza Saeed MD) Narrative: Very recent (12/2024) separation from of 40 years. Living with daughter Bella who would be medical decision maker if needed. Nonsmoker, no ETOH use. 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 Full Code. What is your current living situation?: I presently have a place to live Problems where you live: no known problems Problems where you live details: none In the past 12 months, utilities in danger of being shut off: no In past 12 months, lack of transportation kept you from medical appts, meetings, work, or getting things needed for daily living: no In the past 12 mos, have been you worried that your food would run out before you had money to buy more?: never true In the past 12 mos, the food you bought just didn't last and you didn't have money to buy more?: never true Highest level of school completed/degree received: Associate degree: occupational, technical, vocational program Smoking Status: Never smoker Do you use any of these nicotine containing products: None How often do you have a drink containing alcohol: never How often do you have six or more drinks on one occasion: Never AUDIT-C Alcohol total score: 0 Non-prescribed substance use: denies use Caffeine: Yes How often does anyone, including family, friends and others, physically hurt you: never How often does anyone, including family, friends and others, insult or talk down to you: never How often does anyone, including family, friends and others, threaten you with harm: never How often does anyone, including family, friends and others, scream or curse at you: never service: No Meds Home Medications and Allergies Home Medications ?Medication ?Instructions ?Recorded ?Confirmed ?Type albuterol sulfate 90 mcg/actuation 2 puff inhalation QID PRN 12/29/24 12/29/24 History aerosol inhaler aspirin 81 mg chewable tablet 81 mg PO DAILY 12/29/24 12/29/24 History cetirizine 10 mg tablet 10 mg PO DAILY 12/29/24 12/29/24 History fluticasone 250 mcg-salmeterol 50 1 inh inhalation DAILY 12/29/24 12/29/24 History mcg/dose blistr powdr for inhalation fluticasone propionate 50 2 spray intranasal DAILY 12/29/24 12/29/24 History mcg/actuation nasal spray,suspension insulin aspart U-100 100 unit/mL 19 unit subcut TIDWMEAL 12/29/24 12/29/24 History (3 mL) subcutaneous pen (Novolog FlexPen U-100 Insulin aspart) insulin glargine U-300 conc 300 39 unit subcut HS 12/29/24 12/29/24 History unit/mL (3 mL) subcutaneous pen (Toujeo Max U-300 SoloStar) levothyroxine 175 mcg tablet 175 mcg PO MOWEFR 12/29/24 12/29/24 History levothyroxine 200 mcg tablet 200 mcg PO SUTUTHSA 12/29/24 12/29/24 History lidocaine HCl 2 % mucosal solution 1 applic mucous membrane Q3H PRN 12/29/24 12/29/24 History liothyronine 5 mcg tablet 5 mcg PO DAILY 12/29/24 12/29/24 History lithium carbonate 150 mg capsule 150 mg PO HS 12/29/24 12/29/24 History lithium carbonate 300 mg 300 mg PO HS 12/29/24 12/29/24 History tablet,extended release lorazepam 0.5 mg tablet 1 mg PO HS 12/29/24 12/29/24 History losartan 100 mg tablet 100 mg PO DAILY 12/29/24 12/29/24 History melatonin 3 mg capsule 6 mg PO HS 12/29/24 12/29/24 History metoprolol tartrate 50 mg tablet 50 mg PO BID 12/29/24 12/29/24 History omeprazole 20 mg capsule,delayed 20 mg PO BID 12/29/24 12/29/24 History release prochlorperazine maleate 5 mg 5 mg PO Q6H PRN nausea/vomiting 12/29/24 12/29/24 History tablet valacyclovir 1 gram tablet 2,000 mg PO BID PRN 12/29/24 12/29/24 History Allergies Allergy/AdvReac Type Severity Reaction Status Date / Time amlodipine Allergy Severe Verified 12/29/24 21:09 escitalopram Allergy Severe Agitated Verified 12/29/24 21:09 liraglutide Allergy Unknown Unverified 12/29/24 21:09 topiramate Allergy Unknown Dizziness Verified 12/29/24 21:09 exenatide Allergy Rash Verified 12/29/24 21:09 indomethacin Allergy Rash Verified 12/29/24 21:09 lamotrigine Allergy Dizziness Verified 12/29/24 21:09 levofloxacin Allergy Diarrhea Verified 12/29/24 21:09 metformin Allergy Diarrhea Verified 12/29/24 21:09 morphine Allergy Nausea Verified 12/29/24 21:09 prednisone Allergy Confusion Verified 12/29/24 21:09 gluten AdvReac Verified 12/29/24 21:09 Exam Narrative: Exam Narrative: GEN: Alert and oriented, sitting comfortably in bedside chair, speaking in full sentences HEENT: EOMIs bilaterally, no scleral icterus CV: RRR, No concerning murmurs R: LCTA bilaterally without concerning wheezing, air movement adequate Ab: no ttp Back: normal contours, no CVA ttp Ext: wwp, no concerning edema Skin: No concerning skin lesions or rashes on exposed skin Neuro: Intermittent tongue movements c/w TD, no resting tremor Psych: Appropriate Const: Vital Signs, click to edit/add: Vital Signs - 24 hr 12/29/24 15:08 12/29/24 15:09 12/29/24 15:10 Temperature 98 F Pulse Rate 88 87 Pulse Rate [Pulse Oximeter] 91 Respiratory Rate 20 Blood Pressure 159/122 H Blood Pressure [Ri ght Arm] Blood Pressure [Ri ght Upper Arm] 159/122 H Pulse Oximetry 98 98 98 Oxygen Delivery Me thod Room Air 12/29/24 15:15 12/29/24 15:37 12/29/24 15:39 Temperature Pulse Rate Pulse Rate [Pulse Oximeter] Respiratory Rate 18 16 Blood Pressure 177/80 H Blood Pressure [Ri ght Arm] Blood Pressure [Ri ght Upper Arm] Pulse Oximetry 99 Oxygen Delivery Me thod 12/29/24 15:45 12/29/24 16:21 12/29/24 16:30 Temperature Pulse Rate 98 97 Pulse Rate [Pulse Oximeter] Respiratory Rate 28 H 26 H 37 H Blood Pressure Blood Pressure [Ri ght Arm] Blood Pressure [Ri ght Upper Arm] Pulse Oximetry 97 90 Oxygen Delivery Me thod 12/29/24 16:32 12/29/24 16:45 12/29/24 17:00 Temperature Pulse Rate 99 95 87 Pulse Rate [Pulse Oximeter] Respiratory Rate 37 H 7 L 11 L Blood Pressure 174/104 H Blood Pressure [Ri ght Arm] Blood Pressure [Ri ght Upper Arm] Pulse Oximetry 95 82 L 97 Oxygen Delivery Me thod 12/29/24 17:02 12/29/24 17:48 Temperature 98.3 F Pulse Rate 89 Pulse Rate [Pulse Oximeter] 89 Respiratory Rate 36 H 20 Blood Pressure 154/104 H Blood Pressure [Ri ght Arm] 184/104 H Blood Pressure [Ri ght Upper Arm] Pulse Oximetry 99 98 Oxygen Delivery Me thod Room Air Hospitalist - H&P: Result Labs Labs: Short CBC 12/29/24 Range/Units 15:35 WBC 7.97 (4.50-11.00) K/uL Hgb 14.1 (12.0-16.0) gm/dL Hct 40.1 (33.0-51.0) % Plt Count 268 (140-440) K/uL BMP 12/29/24 15:30 Sodium 129 L Potassium 3.8 Chloride 97 Carbon Dioxide 16 L BUN 13 Creatinine 0.6 Glucose 525 H* Calcium 9.4 Cardiac Enzymes 12/29/24 Range/Units 15:30 Troponin I < 0.01 (0.01-0.04) ng/mL Liver Function 12/29/24 Range/Units 15:30 Total Bilirubin 0.7 (0.1-1.5) mg/dL AST 36 H (12-35) U/L ALT 44 H (4-35) U/L Alkaline Phosphatase 164 H (40-150) U/L Albumin 4.3 (3.3-5.0) g/dL Urine 12/29/24 Range/Units Unknown Urine Color Light yellow (Yellow) Urine Appearance Clear (Clear) Urine pH 6.0 (5.0-8.5) Ur Specific [place] <= 1.005 (1.000-1.030) Urine Protein Negative (Negative) Urine Glucose (UA) 2+ A (Negative)
[2024-12-29 18:25] LABS: HCO3 VBG 22 mmol/L (21-28); Lactate* 2.9 mmol/L (0.5-1.9); PCO2 VBG 36 mmHG (40-50); PO2 VBG 38.5 mmHG (25-47); pH VBG 7.389 (7.32-7.43)
[2024-12-29 18:35] LABS: Chloride* 103 mmol/L (96-114)
[2024-12-29 18:36] LABS: Potassium* 3.7 mmol/L (3.6-5.1); Sodium* 132 mmol/L (135-149)
[2024-12-29 18:38] LABS: Blood Urea Nitrogen* 11 mg/dL (7-30); Creatinine* 0.6 mg/dL (0.5-1.5); Est. Creatinine Clearance* 43.77; Estimated Glomerular Filt Rate 99 ml/min
[2024-12-29 18:39] LABS: Anion Gap 10 mEq/L (7-15); Carbon Dioxide* 19 mmol/L (20-32); Glucose* 269 mg/dL (60-115)
[2024-12-29] MEDS: LACTATED RINGERS 1000 ML 1,000 ML 125 ML IV (19:24)
[2024-12-29] MEDS: INSULIN ASPART 100 UNIT/ML 19 UNIT SUBCUT (19:32)
[2024-12-29] MEDS: LOSARTAN POTASSIUM 50 MG TABLET PO (19:32)
[2024-12-29] MEDS: LITHIUM CARBONATE 150 MG CAPSULE PO (20:39)
[2024-12-29] MEDS: OMEPRAZOLE 20 MG CAPSULE DR PO (20:39)
[2024-12-29] MEDS: METOPROLOL TARTRATE 50 MG TABLET PO (20:39)
[2024-12-29] MEDS: LITHIUM CARBONATE 150 MG CAPSULE 300 MG PO (20:39)
[2024-12-29] MEDS: LORazepam 0.5 MG TABLET 1 MG PO (20:40)
[2024-12-29] MEDS: INSULIN GLARGINE,HUM.REC.ANLOG 100 UNIT/ML INSULN.PEN 39 UNIT SUBCUT (20:40)
[2024-12-29] MEDS: SODIUM CHLORIDE 0.9 % (FLUSH) 10 ML SYRINGE 5 ML IVF (20:41)
[2024-12-30] VITALS (8 sets, daily range): BP systolic 116–178; BP diastolic 58–99; PULSE 56–80; RESP 16–18; TEMP 36.2–36.6; O2SAT 94–98
[2024-12-30] MEDS: MORPHINE 4 MG/ML INJ IVP ×2 (00:54→06:16)
[2024-12-30] MEDS: MELATONIN 3 MG TABLET PO (01:30)
[2024-12-30] MEDS: LACTATED RINGERS 1000 ML 1,000 ML 125 ML IV ×3 (02:40→19:05)
--- NOTE | 2024-12-30 04:25 | PC.NURSE ---
0200 BG was 307, Harsh GIORDANO notified, call back at 0252, stated that she would put in order for 4 units of regular insulin, 0400 BG 244, still awaiting insulin orders to be put in, pt asymptomatic.
[2024-12-30] MEDS: ACETAMINOPHEN 325 MG TABLET 975 MG PO (06:13)
[2024-12-30] MEDS: LEVOTHYROXINE 100 MCG TABLET PO (06:15)
[2024-12-30] MEDS: LEVOTHYROXINE 75 MCG TABLET PO (06:18)
[2024-12-30 06:45] LABS: Basophils Absolute Auto 0.07 K/uL (0.00-0.30); Basophils Percent Auto 0.9 % (0.0-3.0); Eosinophils Absolute Auto 0.26 K/uL (0.00-0.50); Eosinophils Percent Auto 3.3 % (0.0-7.0); Hematocrit 38.7 % (33.0-51.0); Hemoglobin* 13.5 gm/dL (12.0-16.0); Immature Granulocytes Abs Auto 0.03 K/uL (0.00-0.30); Immature Granulocytes Pct Auto 0.4 %; Lymphocytes Percent Auto 49.7 % (20-44); Mean Corpuscular HGB Conc 35 gm/dL (32-36); Mean Corpuscular Hemoglobin 29 pg (26-34); Mean Corpuscular Volume 84 fL (80-100); Monocytes Percent Auto 7.1 % (0.0-11.0); Neutrophils Percent Auto 38.6 % (42.0-72.0); Platelet Count* 254 K/uL (140-440); RDW Coefficient of Variation % 12.4 % (11.5-15.5); White Blood Count* 7.93 K/uL (4.50-11.00)
[2024-12-30 06:49] LABS: Slide Review Reflex No
[2024-12-30 06:54] LABS: Albumin* 3.8 g/dL (3.3-5.0); Chloride* 102 mmol/L (96-114); Potassium* 3.8 mmol/L (3.6-5.1); Sodium* 136 mmol/L (135-149)
--- NOTE | 2024-12-30 06:55 | PC.NURSE ---
End of shift report [id number]: VSS. Pt is alert and orientated. Afebrile. Rates right flank pain a 7-5/10, prn pain meds offered and given with relief. Pain also stated she was having a headache, prn tylenol offered and given. At 0230 pts blood glucose was 307, Harsh GIORDANO contacted and no new orders. After recheck BG was 244. Pt is ind in room. Pt is up to chair, call light within reach.
[2024-12-30 06:56] LABS: Blood Urea Nitrogen* 11 mg/dL (7-30); Creatinine* 0.6 mg/dL (0.5-1.5); Est. Creatinine Clearance* 43.77; Estimated Glomerular Filt Rate 99 ml/min
[2024-12-30 06:57] LABS: Alanine Aminotransferase* 35 U/L (4-35); Alkaline Phosphatase* 122 U/L (40-150); Anion Gap 8 mEq/L (7-15); Aspartate Amino Transferase* 32 U/L (12-35); Bilirubin Total* 0.4 mg/dL (0.1-1.5); Calcium* 9.4 mg/dL (8.4-10.6); Carbon Dioxide* 26 mmol/L (20-32); Glucose* 158 mg/dL (60-115); Total Protein* 6.5 g/dL (6.0-8.3)
[2024-12-30 07:03] LABS: Lactate* 2.2 mmol/L (0.5-1.9)
[2024-12-30] MEDS: INSULIN ASPART 100 UNIT/ML 19 UNIT SUBCUT ×2 (08:38→17:22)
[2024-12-30] MEDS: INSULIN ASPART 100 UNIT/ML SUBCUT ×2 (08:39→20:48)
[2024-12-30] MEDS: ASPIRIN 81 MG TAB.CHEW PO (08:40)
[2024-12-30] MEDS: OMEPRAZOLE 20 MG CAPSULE DR PO ×2 (08:40→20:46)
[2024-12-30] MEDS: METOPROLOL TARTRATE 50 MG TABLET PO ×2 (08:40→20:46)
[2024-12-30] MEDS: CETIRIZINE HCL 10 MG TABLET PO (08:40)
[2024-12-30] MEDS: LOSARTAN POTASSIUM 50 MG TABLET 100 MG PO (08:40)
--- NOTE | 2024-12-30 08:52 | PM.IMPN1 ---
Assessment and Plan Assessment and plan (1) Acute right flank pain: Problem comment: -urine ok, WBC is normal number but has a lymphocyte predominance. -LFTs are now normal, lactate is coming down -blood glucose is now normal -crp is normal -ddx: PNA (but CXR clear), passed renal stone but still requiring pain meds, cholelithiasis, msk, constipation, shingles prodrome Status: Acute (2) Elevated liver enzymes: Problem comment: -mild, noted in Epic chart in 2023 as well, likely 2/2 known fatty liver disease 12/30 - now normal Status: Acute (3) Insulin dependent type 2 diabetes mellitus, uncontrolled: Problem comment: - last A1C 10.0 (11/2024), follows with Dr. Dangelo of Endocrinology Status: Acute (4) Hyponatremia: Problem comment: - 129 in ER, corrected to 136 for hyperglycemia Status: Acute (5) Hyperglycemia due to type 2 diabetes mellitus: Problem comment: - presenting BG of >500 with elevated lactate, no acidosis - improved with IVFs and Regular insulin in ER - repeat VBG stable, lactate down trending - will treat with home insulin + SSI, follow closely - no evidence of acute infectious process 12/30 - blood sugar controlled; flank pain continues Status: Acute Subjective Date Seen: 12/30/24 Interval history: Daily Progress Note - Hospital Medicine Day #: 1 CC: Right flank pain - hyperglycemia without evidence of DKA in a uncontrolled type 2 diabetic 24 HOUR UPDATE: Blood sugars are now under excellent control. Patient required morphine overnight for colicky right flank pain. Clinically this would have been consistent with obstructing nephrolithiasis. However there was only a 2 mm nonobstructing stones seen on stone protocol CT at [facility] yesterday. Her urine is clear. Her labs this morning look reassuring. Her liver enzymes are normal. Electrolytes and renal function are normal. She did have an elevated lactate when she presented and this is slowly resolving. Notable Labs, Micro, Rads, Interventions: -CT noncontrast stone protocol was completed at the [facility]. Unremarkable. (Hepatomegaly and hepatic steatosis Punctate 2 millimeter nonobstructing stone right kidney; normal appendix) -dipstick urine at the [facility] showed 0-2 white blood cells and no bacteria. Follow on micro shows 3+ glucose, 1+ ketones but otherwise negative for nitrite or leukocyte esterase. 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 -workup in September of 2024 for type 1 diabetes was negative. Today, all labs save a mild lactate elevation, are normal. Objective: alert; ambulatory. insightful. Vitals: see above Lungs: Clear. Cardiac: S1S2. back: mild CVAT Disposition/Potential discharge - home either later today or tomorrow. Today I spent 50minutes seeing the patient, reviewing Expanse and EPIC notes/diagnostics, discussing the care plan with our care time that includes social work, PT/OT, pharmacy, RT, custodial and documenting my impressions and plan in the medical record. Prolonged Physician Services [id number] ([facility]) in conjunction with: [id number] (subsequent visit; 50 mins + 15 mins prolonged services = 65 mins total) Exam Const: Vital Signs, click to edit/add: Vital Signs - 24 hr 12/29/24 15:08 12/29/24 15:09 12/29/24 15:10 Temperature 98 F Pulse Rate 88 87 Pulse Rate [Pulse Oximeter] 91 Respiratory Rate 20 Blood Pressure 159/122 H Blood Pressure [Ri ght Arm] Blood Pressure [Ri ght Upper Arm] 159/122 H Pulse Oximetry 98 98 98 Oxygen Delivery Me thod Room Air 12/29/24 15:15 12/29/24 15:37 12/29/24 15:39 Temperature Pulse Rate Pulse Rate [Pulse Oximeter] Respiratory Rate 18 16 Blood Pressure 177/80 H Blood Pressure [Ri ght Arm] Blood Pressure [Ri ght Upper Arm] Pulse Oximetry 99 Oxygen Delivery Me thod 12/29/24 15:45 12/29/24 16:21 12/29/24 16:30 Temperature Pulse Rate 98 97 Pulse Rate [Pulse Oximeter] Respiratory Rate 28 H 26 H 37 H Blood Pressure Blood Pressure [Ri ght Arm] Blood Pressure [Ri ght Upper Arm] Pulse Oximetry 97 90 Oxygen Delivery Me thod 12/29/24 16:32 12/29/24 16:45 12/29/24 17:00 Temperature Pulse Rate 99 95 87 Pulse Rate [Pulse Oximeter] Respiratory Rate 37 H 7 L 11 L Blood Pressure 174/104 H Blood Pressure [Ri ght Arm] Blood Pressure [Ri ght Upper Arm] Pulse Oximetry 95 82 L 97 Oxygen Delivery Me thod 12/29/24 17:02 12/29/24 17:48 12/29/24 19:00 Temperature 98.3 F 98.4 F Pulse Rate 89 Pulse Rate [Pulse Oximeter] 89 79 Respiratory Rate 36 H 20 20 Blood Pressure 154/104 H Blood Pressure [Ri ght Arm] 184/104 H 173/87 H Blood Pressure [Ri ght Upper Arm] Pulse Oximetry 99 98 99 Oxygen Delivery Sd thod Room Air Room Air 12/29/24 23:00 12/29/24 23:00 12/30/24 02:35 Temperature 98.3 F Pulse Rate 61 Pulse Rate [Pulse Oximeter] 80 Respiratory Rate 18 18 Blood Pressure Blood Pressure [Ri ght Arm] 172/96 H Blood Pressure [Ri ght Upper Arm] Pulse Oximetry 95 Oxygen Delivery Sd thod Room Air 12/30/24 03:00 12/30/24 07:15 12/30/24 07:45 Temperature 97.7 F 97.4 F L Pulse Rate 80 Pulse Rate [Pulse Oximeter] 66 68 Respiratory Rate 16 16 Blood Pressure Blood Pressure [Ri ght Arm] 178/99 H 172/84 H Blood Pressure [Ri ght Upper Arm] Pulse Oximetry 98 97 Oxygen Delivery Sd thod Room Air Room Air 12/30/24 07:45 Temperature Pulse Rate Pulse Rate [Pulse Oximeter] 68 Respiratory Rate 16 Blood Pressure Blood Pressure [Ri ght Arm] Blood Pressure [Ri ght Upper Arm] Pulse Oximetry Oxygen Delivery Me thod Labs Labs: Laboratory Results - last 24 hr 12/29/24 12/29/24 12/29/24 15:30 15:35 17:58 WBC 7.97 RBC 4.85 Hgb 14.1 Hct 40.1 MCV 83 MCH 29 MCHC 35 RDW Coeff of Marty 12.0 Plt Count 268 Neut % (Auto) 63.1 Lymph % (Auto) 28.4 Daniels % (Auto) 5.9 Eos % (Auto) 1.1 Baso % (Auto) 0.9 Neut # (Auto) 5.03 Lymph # (Auto) 2.26 Daniels # (Auto) 0.50 Eos # (Auto) 0.09 Baso # (Auto) 0.07 Abs Immat Gran (auto) 0.05 Imm/Tot Granulo (auto) 0.6 VBG pH 7.431 H 7.389 VBG pCO2 29 L 36 L VBG pO2 49.8 H 38.5 VBG HCO3 19 L 22 Sodium 129 L 132 L Potassium 3.8 3.7 Chloride 97 103 Carbon Dioxide 16 L 19 L Anion Gap 16 H 10 BUN 13 11 Creatinine 0.6 0.6 Estimated Creat Clear 43.77 43.77 Estimated GFR 99 99 Glucose 525 H* 269 H Lactate 3.5 H 2.9 H Calcium 9.4 9.0 Total Bilirubin 0.7 AST 36 H ALT 44 H Alkaline Phosphatase 164 H Troponin I < 0.01 C-Reactive Protein 1.0 Total Protein 7.0 Albumin 4.3 Urine Color Urine Appearance Urine pH Ur Specific [place] Urine Protein Urine Glucose (UA) Urine Ketones Urine Blood Urine Nitrite Urine Bilirubin Urine Urobilinogen Ur Leukocyte Esterase Urine RBC Urine WBC Ur Squamous Epith Cells Urine Bacteria Lab Acknowledgement 12/29/24 12/29/24 12/30/24 18:14 Unknown 06:15 WBC 7.93 RBC 4.60 Hgb 13.5 Hct 38.7 MCV 84 MCH 29 MCHC 35 RDW Coeff of Marty 12.4 Plt Count 254 Neut % (Auto) 38.6 L Lymph % (Auto) 49.7 H Daniels % (Auto) 7.1 Eos % (Auto) 3.3 Baso % (Auto) 0.9 Neut # (Auto) 3.10 Lymph # (Auto) 3.90 H Daniels # (Auto) 0.60 Eos # (Auto) 0.26 Baso # (Auto) 0.07 Abs Immat Gran (auto) 0.03 Imm/Tot Granulo (auto) 0.4 VBG pH VBG pCO2 VBG pO2 VBG HCO3 Sodium 136 Potassium 3.8 Chloride 102 Carbon Dioxide 26 Anion Gap 8 BUN 11 Creatinine 0.6 Estimated Creat Clear 43.77 Estimated GFR 99 Glucose 158 H Lactate 2.2 H Calcium 9.4 Total Bilirubin 0.4 AST 32 ALT 35 Alkaline Phosphatase 122 Troponin I C-Reactive Protein Total Protein 6.5 Albumin 3.8 Urine Color Light yellow Urine Appearance Clear Urine pH 6.0 Ur Specific [place] <= 1.005 Urine Protein Negative Urine Glucose (UA) 2+ A Urine Ketones 1+ A Urine Blood Negative Urine Nitrite Negative Urine Bilirubin Negative Urine Urobilinogen 0.2 Ur Leukocyte Esterase Negative Urine RBC 0-2 Urine WBC 0-2 Ur Squamous Epith Cells Few Urine Bacteria None Lab Acknowledgement Test Added
--- NOTE | 2024-12-30 09:04 | CRLHL7_ITS ---
For Patients: As a result of the Century Cures Act, medical imaging exams and procedure reports are released immediately into your electronic medical record. You may view this report before your referring provider. If you have questions, please contact your health care provider. INDICATION: Right-sided chest pain. To evaluate for pneumonia. TECHNIQUE: Chest 2 views. COMPARISON: None FINDINGS: Tubes and devices: Right ROOFING SUPERVISOR shunt line Lungs: Lungs are clear and unchanged. No sign of infiltrate or mass. Pleura: No pleural effusion. No pneumothorax. Heart: Heart size and vasculature are normal in caliber and appearance. Angela and Mediastinum: No enlargement. Bones and soft tissues: No significant findings. IMPRESSION: No findings for active intrathoracic disease. Dictated by Coleman Herring MD @ 12/30/2024 10:19:56 AM (Electronically Signed)
[2024-12-30] MEDS: OXYCODONE 5 MG TABLET PO (12:05)
--- NOTE | 2024-12-30 12:19 | NUTR.NU ---
RDN with MD consult for diet education related to diabetes. Patient admitted for hyperglycemia. Medical history significant for uncontrolled type 2 diabetes. Current weight 169lb 5oz; height 5ft 2in; BMI 31.0 kg/m2. No weight history in chart to assess. RDN visited with patient whom reports a stable weight recently. She reports she has received diet education in the past related to diabetes and declined diet education at this time. No nutrition interventions at this time. RDN to continue to monitor.
--- NOTE | 2024-12-30 12:58 | CRLHL7_ITS ---
For Patients: As a result of the Century Cures Act, medical imaging exams and procedure reports are released immediately into your electronic medical record. You may view this report before your referring provider. If you have questions, please contact your health care provider. Indication: FLANK PAIN, WANT ADDITIONAL INFO OF ABDOMEN, COMPARE TO CT COMPLETED AT [facility] ON 12/29/24 Technique: CT abdomen/pelvis with IV contrast utilizing 83 mL Isovue 370 Comparison: CT abdomen/pelvis on December 29, 2024 Findings: Lower thorax: Unremarkable Abdomen/pelvis Hepatomegaly and hepatic steatosis without focal hepatic lesions. The gallbladder and biliary system are unremarkable. The spleen, atrophic pancreas, and adrenal glands are unremarkable. The kidneys are normal in size and perfused in a normal fashion. No suspicious enhancing renal masses or lesions. Subcentimeter low-density lesion at the lower pole of the right kidney, too small to characterize, but likely a small benign cyst. Stable 2 millimeter nonobstructing stone at the lower pole of the right kidney. No hydroureteronephrosis bilaterally. The bladder is unremarkable in appearance. Postsurgical changes of hysterectomy. No suspicious adnexal lesions. There is no evidence of bowel obstruction or inflammation. The appendix is normal. Trace free fluid in the dependent aspect of the pelvis. No free air. No abscess. Redemonstration of a ventriculoperitoneal shunt catheter with tip in the midline anterior lower abdomen/pelvis. No abdominopelvic lymphadenopathy. The vasculature is unremarkable. Soft tissues/musculoskeletal: Tiny fat containing umbilical hernia. The bones are unremarkable in appearance for the patient`s age. Impression: 1. Trace free fluid in the dependent aspect of the pelvis of uncertain etiology or clinical significance, new compared to prior exam; otherwise, no CT evidence of an acute process involving the abdomen or pelvis. 2. Hepatomegaly and hepatic steatosis. 3. Nonobstructing 2 millimeter stone at the lower pole of the right kidney. No hydroureteronephrosis. Please note that all CT scans at this facility use dose modulation, iterative reconstruction, and/or weight-based dosing when appropriate to reduce radiation dose to as low as reasonably achievable. Dictated by Ran Boogie MD @ 12/30/2024 4:27:40 PM (Electronically Signed)
[2024-12-30 13:47] LABS: Amylase* 70 U/L (18-89); Gamma Glutamyl Transpeptidase* 71 U/L (8-55)
[2024-12-30 14:05] LABS: Procalcitonin* 0.13 ng/mL (<0.50)
[2024-12-30] MEDS: FLUCONAZOLE 100 MG TABLET 200 MG PO (14:19)
[2024-12-30] MEDS: TIZANIDINE HCL 4 MG TABLET PO (14:19)
[2024-12-30 15:28] LABS: Lipase* 27 U/L (23-300)
--- NOTE | 2024-12-30 17:14 | PC.NURSE ---
Patient was fasting during the day. When she arrived back from [place], patient ate dinner. BG was obtained after eating. Dr. Saeed notified. Informed nursing to just give 19 scheduled units of insulin and recheck BG at bedtime.
--- NOTE | 2024-12-30 18:53 | PC.NURSE ---
Patient vitally stable and alert during the shift. Was NPO for potential ultrasound at 1400. Around 1200 patient reporting headache and flank pain. Oral oxycodone administered per patient request. Patient glucose at 1200 was 116. No insuling given due to NPO status. MD changed order for US to CT scan. Patient ate after CT scan- glucose taken after patient ate- it was 335. MD notified and gave orders to just given scheduled 19 units of insulin and recheck at bedtime. Tele discontinued. Plan to discharge home tomorrow. Nursing to continue to monitor.
[2024-12-30] MEDS: LORazepam 0.5 MG TABLET 1 MG PO (20:45)
[2024-12-30] MEDS: ENOXAPARIN 40 MG/0.4 ML INJ SUBCUT (20:47)
[2024-12-30] MEDS: LITHIUM CARBONATE 150 MG CAPSULE 450 MG PO (20:47)
[2024-12-30] MEDS: INSULIN GLARGINE,HUM.REC.ANLOG 100 UNIT/ML INSULN.PEN 39 UNIT SUBCUT (20:49)
[2024-12-30] MEDS: MELATONIN 3 MG TABLET 6 MG PO (20:51)
[2024-12-31 02:02] VITALS: BP 153/84; PULSE 70; RESP 18; TEMP 36.1; O2SAT 98
[2024-12-31] MEDS: LACTATED RINGERS 1000 ML 1,000 ML 125 ML IV (02:54)
--- NOTE | 2024-12-31 05:07 | PC.NURSE ---
Shift note: Patient is alert and oriented. Blood sugar at 2100 was 158. Sliding scale and long acting insulin given. Patient requested for Grahams crackers and peanut butter. Stated she takes snacks before bedtime. Snacks given. Standby assist to BR. Patient takes pill with water. No pain and reported.
[2024-12-31] MEDS: LEVOTHYROXINE 100 MCG TABLET 200 MCG PO (06:12)
[2024-12-31 07:00] VITALS: BP 137/77; PULSE 67; RESP 12; TEMP 36.9; O2SAT 98
[2024-12-31 07:18] LABS: Hematocrit 39.1 % (33.0-51.0); Hemoglobin* 13.1 gm/dL (12.0-16.0); Mean Corpuscular HGB Conc 34 gm/dL (32-36); Mean Corpuscular Hemoglobin 29 pg (26-34); Mean Corpuscular Volume 86 fL (80-100); Platelet Count* 239 K/uL (140-440); Red Blood Count 4.54 m/uL (4.00-5.20); White Blood Count* 6.73 K/uL (4.50-11.00)
[2024-12-31 07:19] LABS: Basophils Absolute Auto 0.05 K/uL (0.00-0.30); Basophils Percent Auto 0.7 % (0.0-3.0); Eosinophils Absolute Auto 0.32 K/uL (0.00-0.50); Eosinophils Percent Auto 4.8 % (0.0-7.0); Immature Granulocytes Abs Auto 0.02 K/uL (0.00-0.30); Immature Granulocytes Pct Auto 0.3 %; Lymphocytes Percent Auto 47.3 % (20-44); Neutrophils Percent Auto 39.9 % (42.0-72.0); RDW Coefficient of Variation % 12.9 % (11.5-15.5)
[2024-12-31 07:31] LABS: Slide Review Reflex No
[2024-12-31 07:40] LABS: Albumin* 3.7 g/dL (3.3-5.0); Chloride* 105 mmol/L (96-114); Potassium* 3.6 mmol/L (3.6-5.1); Sodium* 138 mmol/L (135-149)
[2024-12-31 07:43] LABS: Alanine Aminotransferase* 43 U/L (4-35); Alkaline Phosphatase* 114 U/L (40-150); Anion Gap 6 mEq/L (7-15); Aspartate Amino Transferase* 58 U/L (12-35); Bilirubin Total* 0.4 mg/dL (0.1-1.5); Blood Urea Nitrogen* 9 mg/dL (7-30); Carbon Dioxide* 27 mmol/L (20-32); Creatinine* 0.6 mg/dL (0.5-1.5); Est. Creatinine Clearance* 43.77; Estimated Glomerular Filt Rate 99 ml/min
[2024-12-31 07:44] LABS: Calcium* 9.2 mg/dL (8.4-10.6); Glucose* 107 mg/dL (60-115); Total Protein* 6.3 g/dL (6.0-8.3)
[2024-12-31 07:46] LABS: C Reactive Protein* 0.8 mg/dL (0.5-1.0)
[2024-12-31] MEDS: INSULIN ASPART 100 UNIT/ML 19 UNIT SUBCUT (08:38)
[2024-12-31] MEDS: OMEPRAZOLE 20 MG CAPSULE DR PO (08:40)
[2024-12-31] MEDS: LOSARTAN POTASSIUM 50 MG TABLET 100 MG PO (08:40)
[2024-12-31] MEDS: CETIRIZINE HCL 10 MG TABLET PO (08:40)
[2024-12-31] MEDS: ASPIRIN 81 MG TAB.CHEW PO (08:40)
[2024-12-31] MEDS: METOPROLOL TARTRATE 50 MG TABLET PO (08:41)
[2024-12-31] MEDS: FLUTICASONE PROPIONATE NASAL 2 SPRAY NOSTRIL-B (08:42)
--- NOTE | 2024-12-31 09:19 | PM.DS1 ---
DS: Providers Provider Date Seen: 12/31/24 Date of admission: 12/29/24 18:37 Primary care physician: Angelique Wilson MD Admitting Clinician: Ana Cristina Landaverde MD Consults: 12/29/24 18:36 Consult to Nutrition [CONS] Routine Comment: Reason for consult:: Diabetic Teaching Attending Physician on discharge: Winsome Dsouza MD [facility] Date of Discharge: 12/31/24 DS: Diagnosis Discharge Diagnosis (1) Acute right flank pain: Status: Acute Problem details: -unclear diagnosis. Improved and has not required any pain medication since noon on 12/30. One dose tizanidine possibly made the difference. She possibly passed stone. Chest x-ray and CT scan negative. -okay to discharge. Follow-up with PCP (2) Elevated liver enzymes: Status: Acute Problem details: -mild, noted in Epic chart in 2023 as well, likely 2/2 known fatty liver disease (3) Insulin dependent type 2 diabetes mellitus, uncontrolled: Status: Acute Problem details: - last A1C 10.0 (11/2024), follows with Dr. Dangelo of Endocrinology - patient tells me that her brand insulin glargine is now unaffordable. I am sending a prescription for Lantus. She can work with the pharmacist and or her PCP for the best options for her. - new glucometer, test strips and lancets sent to her pharmacy (4) Hyponatremia: Status: Acute Problem details: - 129 in ER, corrected to 136 for hyperglycemia - resolved (5) Hyperglycemia due to type 2 diabetes mellitus: Status: Acute Problem details: - presenting BG of >500 with elevated lactate - no evidence of DKA - resolved DS: Summary Status at Discharge Cognitive/behavioral status at discharge: FINAL DIAGNOSIS/FOLLOW UP ISSUES: 1. Hyperglycemia in insulin-dependent type 2 diabetes. Blood sugar was greater than 500. This resolved with fluids and insulin. No evidence of DKA. Mild/early HHS considered. 2. Right flank pain - no clear diagnosis made. Musculoskeletal verses passed kidney stone were were highest on our differential. 3. Acute vaginal candidiasis - was treated appropriately but given her significant hyperglycemia her symptoms returned. She was given 1 dose of oral Diflucan, 200 mg, while an inpatient. BRIEF HOSPITAL COURSE: Patient was admitted for 2 days. Synopsis of acute inpatient issues are outlined above. Chronic medical conditions with notable findings outlined above. Cat responded well to fluids and insulin. Her hyperglycemia resolved quickly. She continued to have some right flank pain until about 24 hours prior to discharge. No obvious findings to consolidate and diagnosis. She slept well last night and thinks maybe that tizanidine helped. I have asked her to work with her pharmacy is as I have sent a new glucometer, lancets and strips for her to monitor her blood glucose until her Dexcom arrives. I have also given her as separate insulin glargine prescription because she tells me that her current script for Toujeo is no longer covered by her insurance. DISCHARGE MEDICATIONS: See Reconciled list - SIGNIFICANT CHANGES: Toujeo verses Lantus, 40 units at bedtime whichever is cheaper Tizanidine 2 mg q.8 hours p.r.n. New glucose monitor and supplies Specific instructions to the patient and follow-up are outlined below. REVIEW OF SYSTEMS No new chest pain or dyspnea Pain controlled No voiding difficulties Tolerating diet challenge PHYSICAL EXAM: CONSTITUTIONAL: Conversive, good historian. A/O. Knows setting and context. GENERAL: Well-developed and above ideal body weight, in no respiratory distress. VITAL SIGNS: see record. HEENT: Sclerae are anicteric. No petechiae. CARDIAC: rhythm is regular. There is no S3 or rub. No harsh murmurs. Extremities show trace edema with symmetrical pulses. PULM: good air entry with no wheeze. ABDOMEN: soft. no flank pain. NEURO: Speech is fluent. A brief neurologic exam is negative. SKIN: No rashes, petechiae, concerning changes PSYCHIATRIC: Euthymic. DISPOSITION: Home Time spent on discharge 37 minutes. Functional status at discharge: independent ambulation Overall status at discharge: patient is back to baseline Time Spent with Patient Time attestation: Total time spent providing and/or coordinating discharge services: Time spent: Greater than 30 minutes Exam Const: Vital Signs, click to edit/add: Vital Signs - 24 hr 12/30/24 11:21 12/30/24 15:00 12/30/24 15:00 Temperature 97.2 F L 97.3 F L Pulse Rate Pulse Rate [Pulse Oximeter] 64 60 60 Respiratory Rate 18 18 18 Blood Pressure [Ri ght Arm] 145/75 H 120/70 Pulse Oximetry 98 96 Oxygen Delivery Me thod Room Air Room Air 12/30/24 15:00 12/30/24 19:00 12/30/24 22:22 Temperature 97.8 F Pulse Rate 56 L Pulse Rate [Pulse Oximeter] 67 67 Respiratory Rate 18 18 Blood Pressure [Ri ght Arm] 177/93 H Pulse Oximetry 98 Oxygen Delivery Me thod Room Air 12/30/24 22:22 12/31/24 02:02 12/31/24 07:00 Temperature 97.6 F 97 F L 98.5 F Pulse Rate Pulse Rate [Pulse Oximeter] 61 70 67 Respiratory Rate 18 18 12 Blood Pressure [Ri ght Arm] 116/58 L 153/84 H 137/77 Pulse Oximetry 94 98 98 Oxygen Delivery Me thod Room Air Room Air Room Air DS: Data Data Completed and Pending Labs on day of discharge: Labs from last 24 hours 12/31/24 12/30/24 12/30/24 06:55 14:24 13:16 WBC 6.73 RBC 4.54 Hgb 13.1 Hct 39.1 MCV 86 MCH 29 MCHC 34 RDW Coeff of Marty 12.9 Plt Count 239 Neut % (Auto) 39.9 L Lymph % (Auto) 47.3 H Benson % (Auto) 7.0 Eos % (Auto) 4.8 Baso % (Auto) 0.7 Neut # (Auto) 2.70 Lymph # (Auto) 3.20 H Benson # (Auto) 0.50 Eos # (Auto) 0.32 Baso # (Auto) 0.05 Abs Immat Gran (auto) 0.02 Imm/Tot Granulo (auto) 0.3 Sodium 138 Potassium 3.6 Chloride 105 Carbon Dioxide 27 Anion Gap 6 L BUN 9 Creatinine 0.6 Estimated Creat Clear 43.77 Estimated GFR 99 Glucose 107 Calcium 9.2 Total Bilirubin 0.4 GGT AST 58 H ALT 43 H Alkaline Phosphatase 114 C-Reactive Protein 0.8 Total Protein 6.3 Albumin 3.7 Amylase Lipase Procalcitonin Lab Acknowledgement Test Added TEST ADDED 12/30/24 06:15 WBC RBC Hgb Hct MCV MCH MCHC RDW Coeff of Marty Plt Count Neut % (Auto) Lymph % (Auto) Benson % (Auto) Eos % (Auto) Baso % (Auto) Neut # (Auto) Lymph # (Auto) Benson # (Auto) Eos # (Auto) Baso # (Auto) Abs Immat Gran (auto) Imm/Tot Granulo (auto) Sodium Potassium Chloride Carbon Dioxide Anion Gap BUN Creatinine Estimated Creat Clear Estimated GFR Glucose Calcium Total Bilirubin GGT 71 H AST ALT Alkaline Phosphatase C-Reactive Protein 1.0 Total Protein Albumin Amylase 70 Lipase 27 Procalcitonin 0.13 Lab Acknowledgement Discharge Plan Discharge Disposition: Home, Self-Care Date of Admission: 12/29/24 18:37 Attending Provider on Discharge: Winsome Dsouza Primary Care Provider: Angelique Wilson Condition: Improved Anticipated Discharge Date/Time: 12/31/24 08:55 Discharge Medications: New (DME) Accu-Chek Natasha Plus test strp Strip See Rx Instructions .Route Qty: 50 0RF Rx Instructions: check sugar qac and qhs (DME) blood-glucose meter [Accu-Chek Guide Glucose Meter] Misc See Rx Instructions .Route Qty: 1 0RF Rx Instructions: check sugar qac and qhs (DME) lancing device with lancets [Accu-Chek FastClix Lancing Dev] Kit See Rx Instructions .Route Qty: 1 0RF Rx Instructions: check sugar qac and qhs tizanidine 2 mg capsule 2 mg PO Q8H PRN (Reason: muscle spasticity) Qty: 30 0RF insulin glargine [Lantus Solostar U-100 Insulin] 100 unit/mL (3 mL) insulin pen 40 unit subcut QPM Qty: 15 2RF Continued albuterol sulfate 90 mcg/actuation HFA aerosol inhaler 2 puff inhalation QID PRN cetirizine 10 mg tablet 10 mg PO DAILY aspirin 81 mg tablet,chewable 81 mg PO DAILY fluticasone propion-salmeterol 250-50 mcg/dose blister with device 1 inh inhalation DAILY Rx Instructions: PATIENT REPORTS ONCE DAILY USE fluticasone propionate 50 mcg/actuation spray,suspension 2 spray INTRANASAL DAILY insulin aspart U-100 [Novolog FlexPen U-100 Insulin] 100 unit/mL (3 mL) insulin pen 19 unit SUBCUT TIDWMEAL Patient Comments: PLUS CORRECTION SCALE insulin glargine U-300 conc [Toujeo Max U-300 SoloStar] 300 unit/mL (3 mL) insulin pen 39 unit SUBCUT HS Patient Comments: [NO ORIGINAL SIG] levothyroxine 175 mcg tablet 175 mcg PO MOWEFR Rx Instructions: THREE TIMES PER WEEK (MWF), TAKES 200 MCG ON OTHER DAYS levothyroxine 200 mcg tablet 200 mcg PO SUTUTHSA Rx Instructions: TAKES 4 DAYS/WEEK (TUTHSASU), 175 MCG 3 DAYS/WEEK lidocaine HCl 2 % solution 1 applic mucous membrane Q3H PRN Rx Instructions: FOR COLD SORES NEEDED lithium carbonate 150 mg capsule 150 mg PO HS Rx Instructions: TOTAL DOSE 450 MG AT BEDTIME liothyronine 5 mcg tablet 5 mcg PO DAILY lithium carbonate 300 mg tablet extended release 300 mg PO HS Rx Instructions: TOTAL DOSE 450 MG lorazepam 0.5 mg tablet 1 mg PO HS metoprolol tartrate 50 mg tablet 50 mg PO BID omeprazole 20 mg capsule,delayed release(DR/EC) 20 mg PO BID losartan 100 mg tablet 100 mg PO DAILY melatonin 3 mg capsule 6 mg PO HS valacyclovir 1 gram tablet 2,000 mg PO BID PRN Rx Instructions: TWICE A DAY FOR 2 DOSES AT ONSET OF COLD SORE prochlorperazine maleate 5 mg tablet 5 mg PO Q6H PRN (Reason: nausea/vomiting) Discharge Orders: Discharge Order (Routine); Ordered 12/31/24 Ordered By: Winsome Dsouza Patient Education: Tizanidine (By mouth), Insulin Glargine (By injection) (Lantus, Lantus SoloStar, Toujeo, Semglee), Diabetic Hyperglycemia (DC), Hemoglobin A1c (GEN), What to Do if Your Blood Sugar is Low (DC), Diabetes and Nutrition (DC) Activity Level: Activity as Tolerated Discharge Diet: Diabetic Follow Up Appointments: Angelique Wilson MD [Primary Care Provider, Family Practice] - 01/07/25 10:45 am Referral Note: [facility] for hospital follow-up. Forms: [facility] Info Instructions
--- NOTE | 2024-12-31 10:59 | PC.NURSE ---
Nursing shift 0700- 1021 d/c. Pt. was calm and cooperative, alert and oriented. VSS. Ambulated independently in the room. No complaints of pain. scheduled insulin given, held sliding scale. 100% breakfast consumed. Prescriptions sent to [facility] due to inability to reach / refill at pt's primary pharmacy. Pt. IV removed at d/c. Discussed d/c education with pt. Pt. had no questions or concerns. Wheeled out to family's vehicle in stable condition.
== END 2024-12-31 10:21 | disposition home or self-care (01) | DRG 638 ==
LOC: ED 16:45 → MEDSURG 17:15
PROVIDERS: Family Medicine; Admitting Provider Family Medicine; Emergency Provider Family Medicine; PCP Family Medicine; Visit Provider Family Medicine
DX: E11.65 Type 2 diabetes mellitus with hyperglycemia (principal); E87.1 Hypo-osmolality and hyponatremia; J84.9 Interstitial pulmonary disease, unspecified; B37.31 Acute candidiasis of vulva and vagina; R10.9 Unspecified abdominal pain; R74.01 Elevation of levels of liver transaminase levels; Z79.4 Long term (current) use of insulin; R07.89 Other chest pain; K76.0 Fatty (change of) liver, not elsewhere classified; K21.9 Gastro-esophageal reflux disease without esophagitis; Z79.82 Long term (current) use of aspirin; N20.0 Calculus of kidney; F41.8 Other specified anxiety disorders; E78.5 Hyperlipidemia, unspecified; E03.9 Hypothyroidism, unspecified; Z80.3 Family history of malignant neoplasm of breast; Z86.73 Personal history of transient ischemic attack (TIA), and cerebral infarction without residual deficits
CPT/HCPCS: 36415; 71046; 74177; 80048; 80053; 81001; 82150; 82803; 82947; 82962; 82977; 83605; 83690; 84145; 84484; 85025; 86140; 93005; 99284; 99285; A9270; J1650; J1815; J2270; J7030; J7120; Q9967